=== PATIENT | female | born 1965 | race Caucasian/White ===

== ENCOUNTER 2024-02-13 08:33 | Outpatient (AMB) | payer OTHER, MEDICARE, MEDICAID, SELFPAY ==
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
[2024-02-13 08:44] VITALS: BP 128/80; PULSE 76; TEMP 37.8; O2SAT 98; BMI 24.6
== END 2024-02-13 09:12 | disposition home or self-care (01) ==
PROVIDERS: Visit Provider Physician Assistant
DX: S63.501A Unspecified sprain of right wrist, initial encounter (principal); Z04.3 Encounter for examination and observation following other accident
CPT/HCPCS: 99203

== ENCOUNTER 2024-08-26 11:24 | Outpatient (REF) | payer MEDICARE, MEDICAID, SELFPAY ==
[2024-08-26 15:18] LABS: Influenza A PCR NEGATIVE (Negative); Influenza B PCR NEGATIVE (Negative); Resp Syncy Virus RNA Qual PCR NEGATIVE (Negative); SARS COV2 PCR INHOUSE NEGATIVE (Negative)
--- OUTSIDE RECORDS SUMMARY | 2024-08-26 17:46 | XMS_ITS | Clinical Summary ---
Author Organization [address] Address [address] [place] [address] Phone Care Team Providers Care Tanker Serviceman Name Role Phone Deborah Carlisle MD Primary Care Provider [phone] Allergies Active Allergy Reactions Criticality Noted Date Comments Mirxjcg-Ihwpegumo-Ckj taminophn Hives 07/08/2005 Other Reaction(s): Rash/Dermatitis Naproxen [...] 2:15 PM EST Office Visit Adult Medicine [address] [phone] Natty De La Cruz PA Primary hypertension [...] HISTORY 01/2020 PROCEDURE: MAMMOGRAM ESOPHAGOGASTRODUODENOSCOPY 08/06/2008 PROCEDURE: [place] ESOPHAGOGASTRODUODENOSCOPY TRANSORAL DIAGNOSTIC; COMMENT: Normal COLONOSCOPY 06/29/13 PROCEDURE: HISTORICAL COLONOSCOPY; COMMENT: tics; repeat in ten yrs WISDOM TOOTH EXTRACTION PROCEDURE: HISTORICAL WISDOM TEETH EXTRACTION BREAST BIOPSY PROCEDURE: BX BREAST; PERC NEEDLE CORE W/IMAG GUID BREAST SURGERY Left PROCEDURE: [place] UNLISTED PROCEDURE BREAST; COMMENT: lt brst bx [...] Info) Description 11/27/2024 2:30 PM EDT Appointment [facility] Endoscopy [address] [place] [phone] Yesica Tena MD [address] [address] 03/31/2025 10:30 AM EDT Appointment Radiology Department - [address] [address] Health Maintenance Due Date Last Done Comments [...] category Breast cancer risk not assessed Location: [facility], [address] [place] [address], [place], [address], [phone] Procedure Note Marie Parkinson MD - 04/09/2024 [...] category Breast cancer risk not assessed Location: [facility], [address] [place], [address], [phone] Result [facility] Deborah Carlisle MD IMG XR PROCEDURES Final Result * Annual BMP Blood Test (02/01/2024) Pathologist [facility] Annual BMP Blood Test Abstracted Result [facility] Historical Provider HEALTH MAINTENANCE Final Result * (ABNORMAL) Lipid panel (02/01/2024) [facility] LDL/HDL Ratio 5(A) 0 - 4 Triglycerides 200(A) 0 - 150 mg/dL Cholesterol 235(A) 0 - 200 mg/dL HDL 47 >=40 mg/dL LDL Cholesterol 148(A) 0 - 100 mg/dL Blood Venous blood specimen / Unknown Result [facility] Historical Provider LAB BLOOD ORDERABLES Heidi l Result * Colonoscopy (06/29/2014) Pathologist [facility] Colonoscopy No Interpretation , Abstracted Anatomical Region Laterality Modality Other Historical Provider HEALTH MAINTENANCE Final Result * Hepatitis C Screening (12/23/2012) [facility] Hepatitis C Screening Abstracted Historical Provider HEALTH MAINTENANCE Final Result from Last 3 Months or Most Recently Relevant to Health Maintenance Insurance MEDICARE MEDICAID - [place] Care Teams Tanker Serviceman Relationship Specialty Start Date End Date Deborah Carlisle MD [address] [place] [address] PCP - General 03/31/1999
--- OUTSIDE RECORDS SUMMARY | 2024-08-26 17:46 | XMS_ITS | Patient Health Record ---
Author Organization [facility] Address [address] [facility] [address] [place] [address] Care Team Providers Care Senior Research Manager Name Role Phone Deborah Carlisle Primary Care Provider Unavailabl e Allergies Allergen (clinical drug ingredient) Drug/Non Drug Allergy documented on EMR Reaction Allergy Type Onset Date Status Midrin Hives/Rash/[place] titis Drug Allergy Active naproxen Naproxen Nausea and Vomitng Drug Allergy Active Reason For Referral No Information Medications Medication SIG (Take, Route, Frequency, Duration) Notes Start Date End Date Status Lisinopril 5 MG 1 tablet Orally Once a day Active Omeprazole 20 MG 1 capsule 30 minutes before morning meal Orally Once a day Active Calcium + D 315-200 MG-UNIT 1 tablet Orally Twice a day Active Meclizine HCl 12.5 MG 2 tablets as neede d Orally Once a day Not-Taking Plan Of Treatment No Information Insurance Providers Payer Name Payer Address Payer Phone Subscriber Number Group Number Insured Name Patient Relationship to Insured Coverage Start Date Coverage End Date Medicare of [place] [address] [place] [phone] [id number] Eliane Calle Self - patient is the insured Medical (General) History Medical History History ICD Code Chiari l Malformation Pure Hypercholesterolemia Hypertension Renal Cyst Heartburn vertigo COVID vaccinated X 2 (Moderna) and 1 holliday ster (Moderna) 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 Syncopal episode 03/2021
--- OUTSIDE RECORDS SUMMARY | 2024-08-26 17:46 | XMS_ITS | Clinical Summary ---
Author Organization [facility] Address [address] [place] [address] Care Team Providers Care Green Chain Operator Name Role Phone Deborah Carlisle MD Primary Care Provider [phone] Social History Tobacco Use Types Packs/Day Years [...] age to complete this topic Care Teams Green Chain Operator Relationship Specialty Start Date End Date Deborah Carlisle MD PCP - General Internal Medicine 08/10/20
--- OUTSIDE RECORDS SUMMARY | 2024-08-26 17:46 | XMS_ITS | Encounter Summary ---
Author Organization [facility] [place] [address] Care Team Providers Care Manager Solar Name Role Phone Deborah Carlisle MD Primary Care Provider [phone] Reason for Referral * Consultation (Routine) - Denied Specialty Diagnoses / Procedures Referred By William campos Referred To Contact Gastroenterology Diagnoses Screening for malignant neoplasm of colon Natty De La Cruz PA [address] [place] [phone] Phone: tel: fax: Gastroenterology [facility] [address] [facility] [address] [facility] [address] [place] [address] Phone: tel: fax: Referral ID Status Reason Start Date Expiration Date V isits Requested Visits Authorized [id number] Denied Specialty Services Required 08/01/2024 08/01/2025 1 0 Reason for Visit * Reason Comments Hypertension FOLLOW UP Encounter Details Date Type Department Care Team (Late st Contact Info) Description 08/01/2024 2:15 PM EST Office Visit Adult Medicine [address] [address] Natty De La Cruz PA [address] [place] [phone] Primary hypertension (Primary Dx); Pure hypercholesterolemia; Heartburn; [...] presents to the office today accompanied by physician locums urgent care for evaluation of hypertension. She endorses compliance with lisinopril and has been tolerating regimen without side effect. She has hyperlipidemia and is not currently on any cholesterol-lowering medication. She has GERD and is using omeprazole with good benefit. Due for colonoscopy and agreeable to proceeding. Mammogram up-to-date and subsequent follow-up is in place. Long overdue for routine exam with PHOTO TECH. ROS: GENERAL: No malaise, significant weight loss [...] MOUTH EVERY DAY 90 capsule 1 ALLERGIES: [id number]-[id number] and Naproxen PHYSICAL EXAM: Blood pressure 108/61, [...] screening mammogram. She will schedule appointment with PHOTO TECH for routine exam/Pap. Social needs screening negative. 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 Patient will [...] Info) Description 11/27/2024 2:30 PM EDT Appointment [facility] Endoscopy [address] [place] [id number] Yesica Tena MD [address] [facility] [address] [place] [address] 03/31/2025 10:30 AM EDT Appointment Radiology Department - [address] [address] Scheduled Orders Name Type Priority Associated Diagnoses [...] documented as of this encounter Care Teams Manager Solar Relationship Specialty Start Date End Date Deborah Carlisle MD [address] [place] [address] PCP - General 03/31/1999 documented as of this encounter
== END 2024-08-26 11:25 | disposition home or self-care (01) ==
LOC: HO.LNP 11:24
PROVIDERS: Visit Provider Physician Assistant
DX: B34.9 Viral infection, unspecified (principal); R09.89 Other specified symptoms and signs involving the circulatory and respiratory systems; R50.9 Fever, unspecified
CPT/HCPCS: 0241U; 99202

== ENCOUNTER 2024-08-26 11:24 | Outpatient (AMB) | payer MEDICARE, MEDICAID, SELFPAY ==
--- NOTE | 2024-08-26 11:40 | AM.OFFWIN_ITS ---
Intake Vital Signs 08/26/24 11:42 Height 5 ft 7 in Weight 157 lb BMI 24.6 BP 120/78 Blood Pressure Location Lt brachial Position Sitting Pulse 68 Pulse Source Pulse Oximeter Temp 98.6 F Temp Source Oral Pulse Oximetry (%) 98 Oxygen Delivery Method Room Air Intake Visit Reasons: EP weak, diarreah, vomiting & very pale Intake Note: Patient here for feeling weak after having diarrhea and vomiting a couple of days ago. Patient Tobacco Use Status: Never used Tobacco Allergies No Known Allergies Allergy (Verified 08/26/24 11:42) Do you need a note to return to daycare/school/sports/work: Yes HPI HPI Comments History of Present Illness Details History The patient is a 59-year-old female presenting with vomiting and diarrhea x 1 day which occurred 5 days ago. The symptoms began simultaneously 5d ago, with the vomiting once producing blue-colored contents and diarrhea occurring only on that day. Fatigue and muscle aches in her arms have been present since. She reports a headache and dizziness. There were no incidents of fever, chills, blood in the vomit or stool, or black stool. The patient tried an [id number]-[id number] antidiarrheal with no improvement. 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 Vaccination history includes this year's influenza vaccine. Physical Exam General: Cooperative, healthy appearing, comfortable and no acute distress, but very pale Orientation/consciousness: Patient oriented x3 Limitations: No limitations Head: Normal to inspection, but reports a little bit of a headache Ears: Hearing grossly normal bilaterally, external ears normal and TM's normal bilaterally Nose: Normal external nose present, Normal nares present and No nasal discharge present Face and sinus: Normal facial exam and Yes sinuses nontender Mouth: Normal oral and palatal mucosa present and moist mucous membranes Throat: Yes tonsils normal, Yes uvula midline. Posterior oropharynx erythema, a little bit red back Eyes: Appearance normal, both eyes and all related structures Neck: Normal visual inspection Respiratory: Clear to auscultation bilaterally. Normal respiratory effort, able to speak in complete sentences, no respiratory distress, not tachypneic, no trip od positioning and no use of accessory muscles Cardiovascular: Regular rate and rhythm. Normal S1 and S2 Skin: No rashes or lesions noted Neuro: Patient oriented x3 Extremities: Normal to inspection and Yes no clubbing, cyanosis or edema [facility] Social History Patient Tobacco Use Status: Never used Tobacco Review of Systems Const All systems reviewed & are unremarkable except as noted in HPI and below Physical Exam Vital Signs: Last Vital Signs Temp 98.6 F 08/26/24 11:42 Pulse 68 08/26/24 11:42 BP 120/78 08/26/24 11:42 Pulse Ox 98 08/26/24 11:42 Oxygen Delivery Method Room Air 08/26/24 11:42 BMI result Body Mass Index 24.6 Assessment & Plan Assessment & Plan (1) Acute viral syndrome: Code(s): B34.9 - Viral infection, unspecified Plan: The patient presented with symptoms indicating possible acute viral gastroenteritis or mild viral infection. Testing for influenza, COVID-19, and RSV was done, considering her heightened exposure risk from her workplace. Management includes symptomatic treatment of headache with Tylenol, emphasis on hydration potentially with Pedialyte, and ensuring nutritional support. She is advised to rest and was granted a work excuse to recover. The patient's current stability and unremarkable vital signs are reassuring, pending test results to confirm or rule out viral causes. Patient was informed and verbally consented to the use of an ambient scribe for clinic note documentation during this visit Coding Level of Care Code New Pt Level 3 (81413) Diagnoses Acute viral syndrome B34.9
[2024-08-26 11:42] VITALS: BP 120/78; PULSE 68; TEMP 37; O2SAT 98; BMI 24.6
--- OUTSIDE RECORDS SUMMARY | 2024-08-26 14:24 | XMS_ITS | Encounter Summary ---
Author Organization [facility] [place] [address] Care Team Providers Care Recorder Helper Seismograph Name Role Phone Deborah Carlisle MD Primary Care Provider Reason for Referral * Consultation (Routine) - Denied Specialty Diagnoses / Procedures Referred By William campos Referred To Contact Gastroenterology Diagnoses Screening for malignant neoplasm of colon Natty De La Cruz PA [address] [place] [id number] Phone: tel: fax: Gastroenterology [facility] [address] [facility] [address] [facility] [address] [place] [address] Phone: tel: fax: Referral ID Status Reason Start Date Expiration Date V isits Requested Visits Authorized [id number] Denied Specialty Services Required 08/01/2024 08/01/2025 1 0 Reason for Visit * Reason Comments Hypertension FOLLOW UP Encounter Details Date Type Department Care Team (Late st Contact Info) Description 08/01/2024 2:15 PM EST Office Visit Adult Medicine [address] [phone] Natty De La Cruz PA [address] [place] [id number] Primary hypertension (Primary Dx); Pure hypercholesterolemia; Heartburn; Mild intellectual disability; Screening for malignant neoplasm of colon; Encounter for screening involving social determinants of health (SDoH); Elevated glucose level Social History Tobacco Use Types Packs/Day Years Used Date Smoking Tobacco: Never Smokeless Tobacco: Never Tobacco Cessation:Counseling Given: Not Answered Alcohol Use Standard Drinks/Week Comments Yes 0 (1 standard drink = 0.6 oz pur e alcohol) Housing Instability Answer Date Recorde d Are you worried that in the next 2 months you may not have stable housing? No 08/01/2024 Food Access & Nutrition Answer Date Rec orded Do you have access to a vari ety of food including fruits and vegetables? Yes 08/01/2024 Financial Risk Answer Date Recorded How hard is it for you to pa y for the very basics like food, housing, medical care, and air conditioning / heating? Not very hard 08/01/2024 Food Risk Answer Date Recorded Within the past 12 months we worried whether our food would run out before we got money to buy more. Never true 08/01/2024 Within the past 12 months th e food we bought just didn't last and we didn't have money to get more. Never true 08/01/2024 Living Situation Answer Date Recorded What is your living situation? 0 08/01/2024 Comments Unknown Sex and Gender Information Value Date Recorded Sex Assigned at Not on file Legal Sex Female 11:47 AM EST Gender Identity Not on file Sexual Orientation Not on file documented as of this encounter Last Filed Vital Signs Vital Sign Reading Time Taken Comments Blood Pressure 108/61 08/01/2024 2:02 PM EST Pulse 63 08/01/2024 2:02 PM EST Temperature 37.1 ??C (98.7 ??F) 08/01/2024 2:02 PM ES T Respiratory Rate 17 08/01/2024 2:02 PM EST Oxygen Saturation - - Inhaled Oxygen Concentration - - Weight 72.1 kg (159 lb) 08/01/2024 2:02 PM EST Height 171.5 cm (5' 7.5 ) 08/01/2024 2:02 PM EST Body Mass Index 24.54 08/01/2024 2:02 PM EST documented in this encounter Progress Notes * PHIL Kimball - 08/01/2024 2:15 PM EST CHIEF COMPLAINT: Hypertension (FOLLOW UP) IDENTIFIER: Eliane Calle is a 59 y.o. old female. HPI: This very pleasant patient with history of mild intellectual disability presents to the office today accompanied by career transition specialist for evaluation of hypertension. She endorses compliance with lisinopril and has been tolerating regimen without side effect. She has hyperlipidemia and is not currently on any cholesterol-lowering medication. She has GERD and is using omeprazole with good benefit. Due for colonoscopy and agreeable to proceeding. Mammogram up-to-date and subsequent follow-up is in place. Long overdue for routine exam with FIELD ACCOUNT MANAGER. 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 Chiari I malformation (CMS/HCC) 07/27/2020 Pure hypercholesterolemia 09/13/2017 HTN (hypertension) 08/30/2017 Plantar fasciitis 04/21/2013 Renal cyst 12/12/2008 Heartburn 08/06/2008 Diffuse cystic mastopathy 07/08/2005 Mild intellectual disability 07/08/2005 SOCIAL HISTORY: Social History Tobacco Use Smoking status: Never Smokeless tobacco: Never Substance Use Topics Alcohol use: Yes FAMILY HISTORY: Family Status Relation Name Status Mother Alive Father Brother MGF PGF Brother Mother's stef 1stc cousin Neg Hx (Not Specified) MGM PGM Sister Alive Brother Alive No partnership data on file Family History Problem Relation Name Age of Onset Hypertension Mother elevated cholesterol Alzheimer's disease Father Suicide Attempts Brother COPD Maternal Grandfather heart conditions Other (Other: heart condition) Paternal Grandfather Other (Other: NASIMA) Brother Breast cancer Mother's side 1stc cousin Breast cancer Neg Hx ACTIVE MEDICATIONS: Outpatient Medications Marked as Taking for the 08/01/24 encounter (Office Visit) with PHIL Kimball Medication Sig Dispense Refill calcium carbonate-vitamin D3 600 mg-5 mcg (200 unit) per tablet 1 BID lisinopriL (PRINIVIL,ZESTRIL) 5 mg tablet TAKE ONE TABLET BY MOUTH EVERY DAY 90 tablet 1 omeprazole (PriLOSEC) [address] capsule TAKE ONE CAPSULE BY MOUTH EVERY DAY 90 capsule 1 ALLERGIES: Jvpiaro-czyxmbzub-ejpbfyervxdk and Naproxen PHYSICAL EXAM: Blood pressure 108/61, pulse 63, temperature 37.1 ??C (98.7 ??F), temperature source Temporal, resp. rate 17, height 1.715 m (67.5 ), weight 72.1 kg (159 lb). Body mass index is 24.54 kg/m??. BMI is 18.5 to 24.9 (within the normal range) and will be followed APPEARANCE: Alert and in no acute distress EYES: Conjunctiva and sclera normal HEART: RRR with normal S1 and S2, no murmurs LUNG: clear to auscultation EXTREMITIES: Extremities warm and well perfused without clubbing, cyanosis, or edema NEURO: Awake, alert and oriented to person and place SKIN: Skin color, texture, turgor normal. PSYCH: Calm. Pleasant. Cooperative. LABS: Lab Results Component Value Date CHOL 235 (A) 02/01/2024 TRIG 200 (A) 02/01/2024 HDL 47 02/01/2024 LDL 148 Component Ref Range & Units 6 mo ago Comments GLUCOSE 70 - 100 mg/dL 125 High Reference range applicable to fasting specimens only Blood Urea Nitrogen 5 - 25 mg/dL 16 CREAT 0.5 - 1.1 mg/dL 0.84 GLOMERULAR FILTRATION RATE >60 80 This eGFR result was calculated using the CKD-EPI 2020 Creatinine Equation NA 135 - 145 mEq/L 140 K 3.5 - 5.5 mmol/L 4.3 CL 96 - 110 mmol/L 106 CARBON DIOXIDE (CO2) 21 - 32 mmol/L 29 ANION GAP 3 - 11 5 CALCIUM 8.5 - 10.5 mg/dL 9.3 IMPRESSION: 1. Primary hypertension 2. Pure hypercholesterolemia 3. Heartburn 4. Mild intellectual disability 5. Screening for malignant neoplasm of colon 6. Encounter for screening involving social determinants of health (SDoH) PLAN: Hypertension: Blood pressure is well-controlled. Will update renal function and electrolyte testing. For now patient will continue with lisinopril as instructed. Hyperlipidemia: Previous lipid panel reviewed and suboptimally controlled. Would prefer LDL less than 130. Patient will return to the lab to have fasting lipid panel checked. Await results to determine further therapeutic options and or additional interventions. Heartburn: Stable. Patient will continue with omeprazole as instructed. Patient is referred to GI for colonoscopy. She will continue with annual screening mammogram. She will schedule appointment with FIELD ACCOUNT MANAGER for routine exam/Pap. Social needs screening negative. 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 Patient will return to the office in 6 mos for routine care with PCP. Will contact the office sooner with any problems or concerns. Myself and my colleagues have maintained a long-term, longitudinal relationship with this patient, overseeing care of chronic conditions including hypertension, hyperlipidemia, GERD. This care relationship has significantly influenced my decision making and treatment plans during today's encounter. Orders Placed This Encounter Procedures Comprehensive metabolic panel Lipid panel with reflex to direct LDL Ambulatory referral to Gastroenterology ADDITIONAL ORDERS: AMB REFERRAL TO GASTROENTEROLOGY PHIL Kimball on 08/01/2024 at 2:57 PM EST documented in this encounter Plan of Treatment Upcoming Encounters Date Type Department Care Team (Late st Contact Info) Description 11/27/2024 2:30 PM EDT Appointment [facility] [address] [place] [id number] Yesica Tena MD [address] [facility] [address] [place] [address] 03/31/2025 10:30 AM EDT Appointment Radiology Department - [address] [phone] Scheduled Orders Name Type Priority Associated Diagnoses Orde r Schedule Comprehensive metabolic panel Lab Routine Primary hypertension Pure hypercholesterolemia 1 Occurrences starting 08/01/2024 until 08/01/2025 Lipid panel with reflex to direct LDL Lab Routine Primary hypertension Pure hypercholesterolemia 1 Occurrences starting 08/01/2024 until 08/01/2025 Hemoglobin A1c Lab Routine Elevated glucose level 1 Occurrences starting 08/01/2024 until 08/01/2025 Scheduled Referrals Name Type Priority Associated Diagnoses Order Schedule Ambulatory referral to Gastroenterology Outpatient Referral Routine Screening for malignant neoplasm of colon 1 Occurrences starting 08/01/2024 until 08/01/2025 documented as of this encounter Visit Diagnoses Diagnosis Primary hypertension- Primary Unspecified essential hypertension Pure hypercholesterolemia Heartburn Mild intellectual disability Mild mental retardation Screening for malignant neoplasm of colon Encounter for screening involving social determinants of health (SDoH) Elevated glucose level Encounter for screening mammogram for breast cancer documented in this encounter Additional Health Concerns Assessment Noted Time PHQ-9 Depression Total Score: 0 08/01/19 25 8:48 AM EST documented as of this encounter Care Teams Recorder Helper Seismograph Relationship Specialty Start Date End Date Deborah Carlisle MD [address] [place] [address] PCP - General 03/31/1999 documented as of this encounter
--- OUTSIDE RECORDS SUMMARY | 2024-08-26 14:24 | XMS_ITS | Clinical Summary ---
Author Organization [address] Address [address] [place] [address] Phone Care Team Providers Care B2B Sales Professional Name Role Phone Deborah Carlisle MD Primary Care Provider [phone] Allergies Active Allergy Reactions Criticality Noted Date Comments Zzykzbe-Zmshosxwg-Bzt taminophn Hives 07/08/2005 Other Reaction(s): Rash/Dermatitis Naproxen Nausea And Vomiting 04/22/2007 Medications calcium carbonate-vitam in D3 600 mg-5 mcg (200 unit) per tablet 1 BID Active lisinopriL (PRINIVIL,ZESTR IL) 5 mg tablet TAKE ONE TABLET BY MOUTH EVERY DAY 90 tablet 1 06/01/2024 Active omeprazole (PriLOSEC) [address] capsule TAKE ONE CAPSULE BY MOUTH EVERY DAY 90 capsule 1 06/01/2024 Active Active Problems Problem Noted Date Diagnosed Date Urinary incontinence 08/01/2023 Distorted hearing of left ear 01/04/2023 Chiari I malformation 07/27/2020 Pure hypercholesterolemia 09/13/2017 HTN (hypertension) 08/30/2017 Plantar fasciitis 04/21/2013 Renal cyst 12/12/2008 Heartburn 08/06/2008 Overview (05/27/2024): Normal upper GI endoscopy 08/06/2008. Diffuse cystic mastopathy 07/08/2005 Mild intellectual disability 07/08/2005 Encounters Date Type Department Care Team Description 08/01/2024 2:15 PM EST Office Visit Adult Medicine [address] [phone] Natty De La Cruz PA Primary hypertension (Primary Dx); Pure hypercholesterolemia; Heartburn; Mild intellectual disability; Screening for malignant neoplasm of colon; Encounter for screening involving social determinants of health (SDoH); Elevated glucose level from Last 3 Months Immunizations Name Administration Dates Next Due Influenza trivalent, 0.5mL, preservative free (Fluarix; FluLaval; Fluzone) ages 6mo and older (Afluria) 3 years and older 03/07/2022,03/12/2020,04/22/2019,2012,07/03/2012,06/28/2011,05/27/2010,0 07/02/2009,04/24/2008 Influenza, Unspecified 03/09/2023,2020,03/04/2018,2016,03/24/2015,03/28/2014 Moderna (age 6mo & older) Bi valent, COVID-19, 0.5 mL or 0.25 mL dosage 04/11/2022 Moderna SARS-CoV-2 COVID-19, mRNA, LNP-S, preservative free 05/25/2021 Td Tetanus diptheria (Tdvax) 7yo and older 05/29/2018 Tdap Tetanus diptheria acell ular pertussis (Boostrix; Adacel) 7yo and older 2008 Zoster recombinant (Shingrix ) 19yo and older 12/10/2019,07/07/2019 Surgical History Surgery Date Site/Laterality Comments OTHER SURGICAL HISTORY 01/2020 PROCEDURE: MAMMOGRAM ESOPHAGOGASTRODUODENOSCOPY 08/06/2008 PROCEDURE: [place] ESOPHAGOGASTRODUODENOSCOPY TRANSORAL DIAGNOSTIC; COMMENT: Normal COLONOSCOPY 06/29/13 PROCEDURE: HISTORICAL COLONOSCOPY; COMMENT: tics; repeat in ten yrs WISDOM TOOTH EXTRACTION PROCEDURE: HISTORICAL WISDOM TEETH EXTRACTION BREAST BIOPSY PROCEDURE: BX BREAST; PERC NEEDLE CORE W/IMAG GUID BREAST SURGERY Left PROCEDURE: [place] UNLISTED PROCEDURE BREAST; COMMENT: lt brst bx neg Medical History Medical History Date Comments Mild intellectual disabilities 07/08/2005 D X:Mild intellectual disabilities Heartburn 08/06/2008 DX:Heartburn; CO MMENT: Normal upper GI endoscopy 08/06/2008. HTN (hypertension) 08/30/2017 DX:HTN (hyper tension) Diffuse cystic mastopathy 07/08/2005 DX:Dif fuse cystic mastopathy Chiari I malformation (CMS/HCC) 07/27/2020 DX:Chiari I malformation (HCC) Urinary incontinence 08/01/2023 DX:Urinary incontinence Family History Medical History Relation Name Comments Suicide Attempts Brother 1 Other: NASIMA Brother 2 Alzheimer's disease Father COPD Maternal Grandfather heart c onditions Hypertension Mother elevated choles terol Breast cancer Mother's side 1stc cousin Other: heart condition Paternal Grandfather Breast cancer Neg Hx Relation Name Status Comments Brother 1 Brother 2 Brother 3 Alive Father Maternal Grandfather Maternal Grandmother Mother Alive Mother's side 1stc cousin Paternal Grandfather Paternal Grandmother Sister Alive Social History Tobacco Use Types Packs/Day Years [...] on file Sexual Orientation Not on file Obstetrics History Last Filed Vital Signs Vital Sign Reading [...] Mass Index 24.54 08/01/2024 2:02 PM EST Plan of Treatment Upcoming Encounters Date Type Department Care Team (Late st Contact Info) Description 11/27/2024 2:30 PM EDT Appointment [facility] Endoscopy [address] [place] [phone] Yesica Tena MD [address] [address] 03/31/2025 10:30 AM EDT Appointment Radiology Department - [address] [address] Health Maintenance Due Date Last Done Comments Cervical Cancer Screening: Pap Smear 02/26/1985 Pneumococcal Vaccine: 50+ Years (1 of 1 - PCV) 02/26/2014 Medicare Annual Wellness Visit 06/03/2022 Colorectal Cancer Screening: Colonoscopy 06/29/2024 06/29/2014 Hypertension/CHF/CAD Annual BMP Blood Test 01/31/2025 02/01/2024, 02/01/2024 Depression Screening 08/01/2025 08/01/2024 Social Influencers of Health Screening 08/01/2025 08/01/2024 Breast Cancer Screening 03/12/2026 03/12/20 24, 03/12/2024, 03/06/2023, Additional history exists DTaP,Tdap,and Td Vaccines (3 - Td or Tdap) 05/29/2028 05/29/2018, 2008 Cholesterol Screening (Lipid Panel) 01/31/2029 02/01/2024, 02/01/2024 RSV Immunization Patients 60+ Years Old (1 - 1-dose 75+ series) 02/26/2039 Hepatitis C Screening Completed 12/23/2012 Zoster Vaccines Completed 12/10/2019, 07/07/2019 COVID-19 Vaccine Completed 03/06/2024, , 05/25/2021, Additional history exists Influenza Vaccine Completed 04/05/2024, , 03/07/2023, Additional history exists HIB Vaccines Aged Out No longer eligi ble based on patient's age to complete this topic HIV Screening Discontinued HPV Vaccines Aged Out No longer eligi ble based on patient's age to complete this topic Hepatitis A Vaccines Aged Out No long er eligible based on patient's age to complete this topic Hepatitis B Vaccines Aged Out No long er eligible based on patient's age to complete this topic IPV Vaccines Aged Out No longer eligi ble based on patient's age to complete this topic MMR Vaccines Aged Out No longer eligi ble based on patient's age to complete this topic Meningococcal ACWY Vaccine Aged Out N o longer eligible based on patient's age to complete this topic Meningococcal B Vacine Aged Out No lo nger eligible based on patient's age to complete this topic Pneumococcal Vaccine: Pediatrics (0 to 5 Years) and At-Risk Patients (6 to 64 Years) Aged Out No longer eligible based on patient's age to complete this topic RSV Immunization Patients Under 20 months Aged Out No longer eligible based on patient's age to complete this topic Varicella Vaccines Aged Out No longer eligible based on patient's age to complete this topic Procedures Procedure Name Priority Date/Time Associated Diagnosis Comments SCREENING MAMMOGRAPHY BI 2-VIEW BREAST INC CAD Routine 03/12/2024 10:31 AM EDT Encounter for screening mammogram for malignant neoplasm of breast ANNUAL BMP BLOOD TEST Routine 02/01/2024 LIPID PANEL Routine 02/01/2024 COLONOSCOPY Routine 06/29/2014 HEPATITIS C SCREENING Routine 12/23/2012 from Last 3 Months or Most Recently Relevant to Health Maintenance Results * SCREENING MAMMOGRAPHY BI 2-VIEW BREAST INC CAD (03/12/2024 10:31 AM EDT) Anatomical Region Laterality Modality Radiographic Verenice ging 03/06/2023 9:03 AM EDT Narrative 03/12/2024 12:06 PM EDT This is a summary report. The complete report is available in the patient's medical record. If you cannot access the medical record, please contact the sending organization for a detailed fax or copy. Full field digital screening tomosynthesis mammography, reviewed with CAD and compared to previous mammograms dating back to 02/09/2020 with most recent of 03/06/2023. The breast tissue is heterogeneously dense, limiting sensitivity. No suspicious mass, architectural distortion or suspicious calcifications are identified. ??There is a biopsy clip in the outer left breast. IMPRESSION: : Dense breast tissue, limiting the sensitivity of mammography. No mammographic evidence of malignancy. BIRADS 1-Negative; N. Breast density: The breasts are heterogeneously dense, which may obscure small masses. 5 year breast cancer risk assessment N/A Lifetime breast cancer risk assessment N/A Breast cancer risk category Breast cancer risk not assessed Location: [facility], [address] [place] [address], [place], [address], [phone] Procedure Note Marie Parkinson MD - 04/09/2024 This is a summary report. The complete report is available in thepatient's medical record. If you cannot access the medical record, pleasecontact the sending organization for a detailed fax or copy. Full field digital screening tomosynthesis mammography, reviewed with CADand compared to previous mammograms dating back to 02/09/2020 with mostrecent of 03/06/2023. The breast tissue is heterogeneously dense, limitingsensitivity. No suspicious mass, architectural distortion or suspiciouscalcifications are identified. There is a biopsy clip in the outer left breast. IMPRESSION: : Dense breast tissue, limiting the sensitivity of mammography. Nomammographic evidence of malignancy. BIRADS 1-Negative; N. Breast density: The breasts are heterogeneously dense, which may obscuresmall masses. 5 year breast cancer risk assessment N/A Lifetime breast cancer risk assessment N/A Breast cancer risk category Breast cancer risk not assessed Location: [facility], [address] [place], [address], [phone] Result [facility] Deborah Carlisle MD IMG XR PROCEDURES Final Result * Annual BMP Blood Test (02/01/2024) Pathologist [facility] Annual BMP Blood Test Abstracted Result [facility] Historical Provider HEALTH MAINTENANCE Final Result * (ABNORMAL) Lipid panel (02/01/2024) [facility] LDL/HDL Ratio 5(A) 0 - 4 Triglycerides 200(A) 0 - 150 mg/dL Cholesterol 235(A) 0 - 200 mg/dL HDL 47 >=40 mg/dL LDL Cholesterol 148(A) 0 - 100 mg/dL Blood Venous blood specimen / Unknown Result [facility] Historical Provider LAB BLOOD ORDERABLES Heidi l Result * Colonoscopy (06/29/2014) Pathologist [facility] Colonoscopy No Interpretation , Abstracted Anatomical Region Laterality Modality Other Historical Provider HEALTH MAINTENANCE Final Result * Hepatitis C Screening (12/23/2012) [facility] Hepatitis C Screening Abstracted Historical Provider HEALTH MAINTENANCE Final Result from Last 3 Months or Most Recently Relevant to Health Maintenance Insurance MEDICARE MEDICAID - [place] Care Teams B2B Sales Professional Relationship Specialty Start Date End Date Deborah Carlisle MD [address] [place] [address] PCP - General 03/31/1999
--- OUTSIDE RECORDS SUMMARY | 2024-08-26 14:24 | XMS_ITS | Data Portability ---
Author Organization [place] - [facility], Allergy Address [address] [address] Care Team Providers Care Bank Credit Card Collection Clerk Name Role Phone ARNOLD FERRIS Primary Care Provider Assessment Encounter Date Assessment Date Assessment LastModified by Organization Details LastModified Time 03/31/2024 03/31/2024 Otologic exam unremarkable. Audiometric testing demonstrates stability of her bilateral neurosensory hearing loss. She does have loss in some of the speech frequencies but she does not feel that she is struggling in conversation and is not currently in interested in amplification. Recommend noise avoidance and annual audiometric testing. Patient understands to call sooner with any otologic exam issues that arise. [email or web address] Not available 03/31/2024 10:48:08 Plan of Treatment Reminders Order Date Submit Date Provider Last Modified By Organization Details Last Modified Time Details Appointments None record ed. Lab None record ed. Referral None record ed. Procedures None record ed. Surgeries None record ed. Imaging None record ed. Medication Orders None record ed. Patient TargetsNo targets recorded. Patient InstructionsNo instructions recorded. Reason for Referral None Reported. Results Created Date Observation Date Name Description Value Unit Range Abnormal Flag Note LastModifiedBy Organization Detail LastModifiedTime 03/31/20 24 audio gram No observ ation record ed. BARCODE Not Available 2023 10:42:41 03/31/20 24 audio gram No observ ation record ed. BARCODE Not Available 2023 11:11:15 03/31/20 24 audio gram No observ ation record ed. BARCODE Not Available 2023 11:14:19 03/31/20 24 audio gram No observ ation record ed. [email or web address] Not Available 12/2023 11:18:15 Result Notes None recorded. Problems Name Problem SNOMED Code Status Onset Date Resolution Date Notes Provider Name and Address Organization Details Recorded Time Bilateral tinnitus 03199789592 02 Active 2022 Tinnitus, bilateral ; Note: Date Diagnosed : 03/29/2023 10:47 AM (H93.13) Not Available [facility] 02:39:42 Foreign body in left ear 14519004837 265255 Active 2022 Foreign body in left ear, initial encounter ; Note: Date Diagnosed : 03/29/2023 3:29 PM (T16.2XXA ) Not Available [facility] 02:39:38 Sensorine ural hearing loss of bilateral ears 814554644 Active 2022 Sensorine ural hearing loss, bilateral ; Note: Date Diagnosed : 03/29/2023 10:47 AM (H90.3) Not Available [facility] 02:39:36 Tinnitus of left ear 72878144512 06 Active 2023 NASH MENDEZ PA-C [address] [address], [place], [address] , [facility] 10:47:29 Problem Notes None recorded. Procedures Surgical History Date Name Laterality Status Provider Name and Address Organization Details Recorded Time 03/31/2024 Air & Speech Audio with Tymps (09905, 98642 & 33519) completed GAB GUSMAN [address] [place] [address], [place], [address], [facility] 03/31/2024 10:20:29 Imaging Results Imaging Date Name Status LastModified by Organiz ation Details LastModified Time 03/31/2024 audiogram completed BARCODE Information no t available 03/31/2024 10:42:41 03/31/2024 audiogram completed BARCODE Information no t available 03/31/2024 11:11:15 03/31/2024 audiogram completed BARCODE Information no t available 03/31/2024 11:14:19 03/31/2024 audiogram completed [email or web address] Information n ot available 03/31/2024 11:18:15 Procedure Notes None recorded. Medical Equipment None Reported. Allergies Allergen ID Allergen Name Allergen Category Reaction Reaction Severity Criticality Documentation Date Start Date Code Code System Note Provider Name and Address Organization Details Recorded Time 759277 Midrin medicatio n other Not available Not available 11/06/2023 63464 RxNorm React ion: Unkno wn; Not Available [facility] 01:18[facility]22 Medications Name Sig Start Date Stop Date Status Note LastModified by Organization Details LastModified Time fluorometh olone 0.1 % eye drops,susp ension INSTILL 1 DROP IN EACH EYE TWO TIMES A DAY FOR 1 WEEK, THEN ONCE DAILY FOR 1 WEEK, THEN STOP. SHAKE. active Not Available Not Available No t Available omeprazole 20 mg capsule,de layed release TAKE ONE CAPSULE BY MOUTH EVERY DAY active Not Available Not Available No t Available lisinopril 5 mg tablet TAKE ONE TABLET BY MOUTH EVERY DAY active Not Available Not Available No t Available Calcium-50 0 500 mg (as calcium carbonate 1,250 mg) chewable tablet active Medication ID: [id number] Bra nd Name: Calcium 500 Send Method: E-Prescrib ed Subs Allowed: subs [place] Medicat ionGeneric Name: Calcium 500 Not Available Not Available Not Available olopatadin e 0.2 % eye drops INSTILL ONE DROP IN EACH EYE ONCE DAILY IN THE MORNING active Not Available Not Available No t Available Vitals Date Recorded Body height Body mass index (BMI) Body weight Provider Name and Address Organization Details Last Updated DateTime 03/31/2024 170.18 cm 21.9 kg/m2 96713.93 g Emy Anguiano [place] - [facility] 03/31/2024 10:28:26 Social History None recorded. Functional Status None recorded. Mental Status None recorded. Family History Nothing Reported. Medical History No medical history recorded. Gynecological HistoryNo gynecological history recorded. Obstetrics History GPAL:G 0 P 0 0 0 0 Past Encounters Encounter ID Performer Location Encounter Start Date Encounter Closed Date Diagnosis/Indication Diagnosis SNOMED-CT Code Diagnosis ICD10 Code Diagnosis Note NASH MENDEZ PA-C [facility] [address] [place] [address] 03/31/2024 10:02:10 03/31/2024 12:35:40 Sensorineural hearing loss of bilateral ears 657267321 H90.3 Tinnitus of left ear 111 8376281 106 H93.12 GAB GUSMAN [facility] [address] [address] 03/31/2024 10:19:28 04/01/2024 07:43:37 Sensorineural hearing loss of bilateral ears 191021377 H90.3 Right Ear:Normal hearing through 1K Hz sloping to a severe SNHL with excellent speech discrimina tion.Type A tympanogra m.Left Ear:Normal hearing through 500 Hz sloping to a severe SNHL with excellent speech discrimina tion.Type A tympanogra m. Health Concerns Section Related Observation LastModified by Organization Detai ls LastModified Time None Recorded Concern Status LastModified by Organization Details LastModified Time None Recorded Advance Directives Directive None Recorded Payers Encounter Date Sequence Insurance Name Policy Number Policy Ibanez Covered Member ID Ibanez Member ID Guarantor Name 03/31/2024 1 [place] [employer] Eliane L Alva [id number] Eliane Alva 03/31/2024 2 [place] [facility] Eliane Alva [id number] Eliane Alva 03/31/2024 1 [place] [employer] Eliane L Alva [id number] Eliane Alva 03/31/2024 2 [place] [facility] Eliane Alva [id number] Eliane Alva Notes Date Note Type Note Provider Name and Address Organization Details Recorded Time 03/31/2024 text/html 59-year-old maggie monroy presents for evaluation of ears and hearing. Denies change in hearing. Nonpulsatile tinnitus in the left ear is unchanged and relatively well tolerated with masking. Patient denies otalgia and otorrhea. NASH MENDEZ PA-C [address] [place] [address], [phone], [facility] - [facility] 03/31/2024 10:48:41 OBGyn Episode No OBEpisode recorded.
--- OUTSIDE RECORDS SUMMARY | 2024-08-26 14:24 | XMS_ITS | Clinical Summary ---
Author Organization [facility] Address [address] [place] [address] Care Team Providers Care Quality Systems Manager Name Role Phone Deborah Carlisle MD Primary Care Provider [phone] Social History Tobacco Use Types Packs/Day Years Used Date Smoking Tobacco: Never Assessed Sex and Gender Information Value Date Recorded Sex Assigned at Not on file Gender Identity Not on file Sexual Orientation Not on file Plan of Treatment Health Maintenance Due Date Last Done Comments Hepatitis C Screening 1965 COVID-19 Vaccine (#1) 1964 Depression Screening 1976 Preventative Health Evaluation 02/26/1982 Cervical Cancer Screening (Pap Smear) 02/26/1985 Colon Cancer Screening (Colonoscopy) 02/26/2009 Breast Cancer Screening (Mammogram) 02/26/2014 DTap / Tdap / Td (2 - Td or Tdap) 02/26/2018 2008 Influenza Vaccine (#1) 2024 0, 04/22/2019, 04/21/2013, Additional history exists RSV Adult > 60+ Yrs or (1 - 1-dose 75+ series) 02/26/2039 Shingrix-Zoster Vaccine Completed 12/10/2019, 07/07 Hepatitis B Vaccines Aged Out No long er eligible based on patient's age to complete this topic Pneumococcal Vaccine Aged Out No long er eligible based on patient's age to complete this topic RSV Ped < 20 months Aged Out No longe r eligible based on patient's age to complete this topic Care Teams Quality Systems Manager Relationship Specialty Start Date End Date Deborah Carlisle MD PCP - General Internal Medicine 08/10/20
== END 2024-08-26 12:21 | disposition home or self-care (01) ==
PROVIDERS: Visit Provider Physician Assistant
DX: B34.9 Viral infection, unspecified (principal)

== ENCOUNTER 2025-06-09 12:46 | Outpatient (REF) | payer MEDICARE, MEDICAID, SELFPAY ==
--- NOTE | 2025-06-09 13:37 | MHC.AU.HA1 ---
Hearing Aid Evaluation Date of Visit: 06/09/25 Historical Information: Description of Hearing: Within normal sloping to moderately-severe sensorineural hearing loss, bilaterally Summary: Accompanied by technical support 1 software engineer, Gabriella. Hearing test and medical clearance from [facility]. Noted gradual change in hearing starting about two years ago. Difficulty fully understanding conversations at times. 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 Reported bilateral, intermittent tinnitus described as swishing. Hoping HAs will help ease some communication difficulties and minimize perception of tinnitus. Discuss options. Opted to trial rechargeable RITEs. Has Android cellphone but unsure if she wants to pair HAs. Gabriella has worn HAs for >15 years so will be able to help Eliane, as needed. Hearing Aid Prescription: Based on the individual?s shared listening needs, communication environments, dexterity, desire for connectivity, and personal preferences, the following prescription for amplification has been made: Right ear: Make, Model, Color: Phonak Audeo L70-R Color: Sand Beige Battery Size: Rechargeable Casino Cage Cashier/Slim Tube: 1M Type of Earmold/Dome/CShell/SlimTip: Small vented dome Left ear: Left ear prescription to be same as Right Hearing Aid above: Make, Model, Color: Phonak Audeo L70-R Color: Sand Beige Battery Size: Rechargeable Casino Cage Cashier/Slim Tube: 1M Type of Earmold/Dome/CShell/SlimTip: Small vented dome Accessories/Assistive Technology: Manager Federal Plan of Care: Patient wishes to purchase hearing aids as prescribed Action Taken/Action Needed: Hearing Instrument Fitting to be scheduled when materials arrive Primary Diagnosis: H90.3 Bilateral Sensorineural Hearing Loss Signature: Provider: Jacinta Daily, [facility]
--- OUTSIDE RECORDS SUMMARY | 2025-06-09 16:34 | XMS_ITS | Patient Health Record ---
Author Organization [facility] Address [address] [address] Care Team Providers Care Magistrate Judge Name Role Phone Deborah Carlisle Primary Care Provider HEBERT Harper Unavailable [phone] Allergies Allergen (clinical drug ingredient) Drug/Non Drug Allergy documented on EMR Reaction Allergy Type Onset Date Status Midrin Hives/Rash/[place] titis Drug Allergy Active naproxen Naproxen Nausea and Vomitng Drug Allergy Active Reason For Referral No Information Medications Medication SIG (Take, Route, Frequency, Duration) Notes Start Date End Date Status Meclizine HCl 12.5 MG 2 tablets as neede d Orally Once a day Unknown Lisinopril 5 MG 1 tablet Orally Once a day Active Omeprazole 20 MG 1 capsule 30 minutes before morning meal Orally Once a day Active Calcium + D 315-200 MG-UNIT 1 tablet Orally Twice a day Active Problems Problem Type SNOMED Code ICD Code Onset Dates Problem Status W/U Status Risk Notes Problem Plantar fasciitis (248608085) Plantar fasciitis (M72.2) Active confirmed Vital Signs Height 5ft 6.5in in 02/10/2025 Weight 159.7 lbs 02/10/2025 BMI 25.39 kg/m2 02/10/2025 Encounters Encounter Location Date Provider Diagnosis [facility] [address] 02/10/2025 HEBERT TRAN Arch pain of left fo ot M79.672 ; Arch pain of right foot M79.671 ; Plantar fasciitis M72.2 and Chiari I malformation G93.5 [facility] [address] [address] 02/10/2025 HEBERT TRAN Assessments Encounter Date Diagnosis (ICD Code) Assessment Notes Treatment Notes Treatment Clinical Notes Section Notes 02/10/2025 Arch pain of right foot (ICD-10 - M79.671) 02/10/2025 Arch pain of left foot (ICD-10 - M79.672) Patient examined and evaluated. I reviewed her past medical history in detail. 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 She has had evaluations with orthopedic specialists and other podiatrists. She has undergone immobilization, steroid injections, Amniofix injections, PT, custom orthotics, multiple MRIs and radiographs. She had an EMG/NCV test that she could not finish due to the pain. She has been in custom orthotics for the last 5 years and this has controlled the pain for her. She wishes to have a new pair made and possibly two pairs depending on insurance. I will send over a Rx to [facility] as this is where she had them made in the past. She can follow back as needed with me. Patient is ambulatory and requires stabilization of the foot and ankle due to chronic bilateral arch pain. Patient will need the device for more than 6 months. Patient has the potential to benefit functionally and there is a need to control the knee, ankle, and foot in more than one plane. A prefab device could not be fitted to the patient base on the severity of the deformity. Treatment goals are to decrease strain on the joints of the forefoot and rearfoot, to improve gait stability, and decrease pain and progression. This treatment is a viable alternative to reconstructive surgery. 02/10/2025 Plantar fasciitis (ICD-10 - M72.2) 02/10/2025 Chiari I malformation (ICD-10 - G93.5) Plan Of Treatment No Information Insurance Providers Payer Name Payer Address Payer Phone Subscriber Number Group Number Insured Name Patient Relationship to Insured Coverage Start Date Coverage End Date Medicare of [place] [address]Z [id number] [place] [phone] [id number] Eliane Calle Self - patient is the insured Medical (General) History Medical History History ICD Code Chiari l Malformation Pure Hypercholesterolemia Hypertension Renal Cyst Heartburn vertigo COVID vaccinated X 2 (Moderna) and 1 holliday ster (Moderna) Chronic bilateral arch pain in both feet Surgical History Surgery Date(Month/Year) Breast Surgery Procedure BX Breast ; Perc Needle Core W/Image [facility] [place] Teeth Extraction Hospitalization History Reason Date(Month/Year) dizziness/ dehydration DX with vertigo. Syncopal episode 03/2021
--- OUTSIDE RECORDS SUMMARY | 2025-06-09 16:34 | XMS_ITS | Clinical Summary ---
Author Organization [facility] [address] [place] [address] [place] [address] Phone Care Team Providers Care Hand Paster Name Role Phone Deborah Carlisle MD Primary Care Provider [phone] Allergies Active Allergy Reactions Criticality Noted Date Comments Kpwwild-Kwlordzjr-Dml taminophn Hives 07/08/2005 Other Reaction(s): Rash/Dermatitis Naproxen Nausea And Vomiting 04/22/2007 Medications calcium carbonate-george min D3 600 mg-5 mcg (200 unit) per tablet 1 BID Active lisinopriL (PRINIVIL,ZEST RIL) 5 mg tablet TAKE ONE TABLET BY MOUTH EVERY DAY 90 tablet 06/08/20 25 Active omeprazole (PriLOSEC) [address] capsule TAKE ONE CAPSULE BY MOUTH EVERY DAY BEFORE BREAKFAST 90 capsule 06/08/20 25 Active lisinopriL (PRINIVIL,ZEST RIL) 5 mg tablet Take 1 tablet (5 mg total) by mouth 1 (one) time each day. 90 tablet 03/17/20 25 025 Discontinued omeprazole (PriLOSEC) [address] capsule Take 1 capsule (20 mg total) by mouth 1 (one) time each day before breakfast. 90 capsule 03/17/20 25 025 Discontinued Active Problems Problem Noted Date Diagnosed Date Urinary incontinence 08/01/2023 Distorted hearing of left ear 01/04/2023 Chiari I malformation 07/27/2020 Pure hypercholesterolemia 09/13/2017 HTN (hypertension) 08/30/2017 Plantar fasciitis 04/21/2013 Renal cyst 12/12/2008 Heartburn 08/06/2008 Overview (05/27/2024): Normal upper GI endoscopy 08/06/2008. Diffuse cystic mastopathy 07/08/2005 Mild intellectual disability 07/08/2005 Encounters Date Type Department Care Team Description 03/31/2025 10:13 AM EDT - 03/31/2025 11:59 PM EDT Hospital Encounter Radiology Department - [address] [address] Encounter for screening mammogram for breast cancer Discharge Disposition: Home or Self Care from Last 3 Months Immunizations Immunization Administration Dates Next Due Influenza trivalent, 0.5mL, [...] 12/10/2019,07/07/2019 Surgical History Surgery Date Site/Laterality Comments ESOPHAGOGASTRODUODENOSCOPY 08/06/2008 : Normal COLONOSCOPY 06/29/13 : tics; repeat in ten yrs WISDOM TOOTH EXTRACTION BREAST SURGERY Left : lt brst bx neg COLONOSCOPY 11/27/2024 Medical History Medical History Date Comments Mild intellectual disabilities 07/08/2005 Heartburn 08/06/2008 : Normal upper G I endoscopy 08/06/2008. HTN (hypertension) 08/30/2017 Diffuse cystic mastopathy 07/08/2005 Chiari I malformation (CMS/H CC V24, CMS/HCC V28) 07/27/2020 Urinary incontinence 08/01/2023 Family History Medical History Relation Name Comments [...] Date Recorded What is your living situation? Unrecognized valu e 08/01/2024 Interpersonal Safety Answer Date Record ed Physical Abuse Unrecognized value 11/27/2024 Verbal Abuse Unrecognized value 11/27/2024 Comments Unknown Sex and Gender Information Value Date Recorded Sex Assigned at Not on file Legal Sex Female 11:47 AM EST Gender Identity Not on file Sexual Orientation Not on file Obstetrics History Para Term AB IAB SAB Ectopic Multiple Livin g Live Births 0 0 0 Last Filed Vital Signs Vital Sign Reading Time Taken Comments Blood Pressure 132/60 12/16/2024 9:29 AM EDT Pulse 75 12/16/2024 9:29 AM EDT Temperature 35.8 C (96.5 F) 12/16/2024 9:29 AM EDT Respiratory Rate 14 12/16/2024 9:29 AM EDT Oxygen Saturation 98% 12/16/2024 9:29 AM EDT Inhaled Oxygen Concentration - - Weight 71.5 kg (157 lb 11.2 oz) 12/16/2024 9:29 AM EDT Height 168.9 cm (5' 6.5 ) 12/16/2024 9:29 AM EDT Body Mass Index 25.07 12/16/2024 9:29 AM EDT Plan of Treatment Upcoming Encounters Date Type Department Care Team (Late st Contact Info) Description 06/30/2025 11:30 AM EST Office Visit Adult Medicine [facility] [address] [place] [address] Natty De La Cruz [facility] [address], [place] Health Maintenance Due Date Last Done Comments Cervical Cancer Screening: Pap Smear 02/26/1985 Medicare Annual Wellness Visit 06/03/2022 COVID-19 Vaccine ( season) 2025 03/06/2024, 04/11/2022, 05/25/2021, Additional history exists Social Influencers of Health Screening 08/01/2025 08/01/2024 Hypertension/CHF/CAD Annual BMP Blood Test 12/16/2025 12/16/2024, 02/01/2024, 02/01/2024 Breast Cancer Screening 03/31/2027 03/31/20 25, 03/12/2024, 03/12/2024, Additional history exists DTaP,Tdap,and Td Vaccines (3 - Td or Tdap) 05/29/2028 05/29/2018, 2008 Cholesterol Screening (Lipid Panel) 12/16/2029 12/16/2024, 02/01/2024, 02/01/2024 Colorectal Cancer Screening: Colonoscopy 11/27/2034 11/27/2024, 06/29/2014 RSV Immunization Adult Patients (1 - 1-dose 75+ series) 02/26/2039 Hepatitis C Screening Completed 12/23/2012 Zoster Vaccines Completed 12/10/2019, 07/07/2019 Depression Screening Completed 08/01/2024 Influenza Vaccine Completed 03/11/2025, , 03/07/2022, Additional history exists Pneumococcal Vaccine: 50+ Years Completed 03/11/2025 HIB Vaccines Aged Out No longer eligi [...] age to complete this topic Meningococcal B Vaccine Aged Out No l onger eligible based on patient's age to complete this topic RSV Immunization Patients Under 20 months Aged Out No longer eligible based on patient's age to complete this topic Varicella Vaccines Aged Out No longer eligible based on patient's age to complete this topic Procedures Procedure Name Priority Date/Time Associated Diagnosis Comments MG MAMMO DIGITAL SCREENING W EDMUND BILAT Routine 03/31/2025 10:23 AM EDT Encounter for screening mammogram for breast cancer COMPREHENSIVE METABOLIC PANEL Routine 12/16/2024 9:52 AM EDT Primary hypertension Pure hypercholesterolemia LIPID PANEL WITH REFLEX TO DIRECT LDL Routine 12/16/2024 9:52 AM EDT Primary hypertension Pure hypercholesterolemia COLONOSCOPY Routine 11/27/2024 4:03 PM EDT Colon cancer screening HM HEPATITIS C SCREENING Routine 12/23/2012 from Last 3 Months or Most Recently Relevant to Health Maintenance Results * MG Mammo Digital Screening w Edmund bilat (03/31/2025 10:23 AM EDT) Anatomical Region Laterality Modality Breast Bilateral Mammography 04/01/2025 4:42 PM EDT Impressions 04/01/2025 4:49 PM EDT 1. No mammographic evidence of malignancy 2. Heterogeneous breast parenchyma BI-RADS CATEGORY: 2 - BENIGN RECOMMENDATION: Screening bilateral mammogram is recommended in 1 year. Mammo Location: [facility], [address] [place] [address], [id number], . -------- FINAL REPORT -------- Dictated By: Katerin Sultana Dictated Date: 04/01/2025 16:42 ET Assigned Physician: Katerin Sultana Reviewed and Electronically Signed By: Katerin Sultana Signed Date: 04/01/2025 16:49 ET Workstation ID: [id number] Transcribed By: Self Edit Transcribed Date: 04/01/2025 16:42 ET Narrative 04/01/2025 4:49 PM EDT A BILATERAL DIGITAL 3D SCREENING MAMMOGRAPHY HISTORY: Routine screening. Family history of breast cancer COMPARISON: Multiple priors dating back to 02/19/2021 Technique: Bilateral full field digital mammography (3D) was performed using standard CC and MLO projections CAD was used to evaluate this mammogram. FINDINGS: Right: No suspicious masses, groups of microcalcification or areas of architectural distortion identified. Stable typically benign parenchymal asymmetries. Left: No suspicious masses, groups of microcalcification or areas of architectural distortion identified. Stable typically benign parenchymal asymmetries. Lateral breast biopsy marker. BREAST DENSITY: C - The breasts are heterogeneously dense which may obscure small masses. Procedure Note Katerin Sultana MD - 04/01/2025 A BILATERAL DIGITAL 3D SCREENING MAMMOGRAPHY HISTORY: Routine screening. Family history of breast cancer COMPARISON: Multiple priors dating back to 02/19/2021 Technique: Bilateral full field digital mammography (3D) was performedusing standard CC and MLO projections CAD was used to evaluate this mammogram. FINDINGS: Right: No suspicious masses, groups of microcalcification or areas ofarchitectural distortion identified. Stable typically benign parenchymalasymmetries. Left: No suspicious masses, groups of microcalcification or areas ofarchitectural distortion identified. Stable typically benign parenchymalasymmetries. Lateral breast biopsy marker. BREAST DENSITY: C - The breasts are heterogeneously dense which mayobscure small masses. IMPRESSION: 1. No mammographic evidence of malignancy 2. Heterogeneous breast parenchyma BI-RADS CATEGORY: 2 - BENIGN RECOMMENDATION: Screening bilateral mammogram is recommended in 1 year. Mammo Location: [facility], [address] [place] [address], [id number], . -------- FINAL REPORT -------- Dictated By: Katerin Sultana Dictated Date: 04/01/2025 16:42 ET Assigned Physician: Katerin Sultana Reviewed and Electronically Signed By: Katerin Sultana Signed Date: 04/01/2025 16:49 ET Workstation ID: [id number] Transcribed By: Self Edit Transcribed Date: 04/01/2025 16:42 ET Deborah Carlisle MD IM BI PROCEDURES Final Result * (ABNORMAL) Lipid panel with reflex to direct LDL (12/16/2024 9:52 AM EDT) Cholesterol 256(H) 0 - 200 mg/dL LAB CHEMISTRY METHOD 12/16/2024 2:15 PM EDT [facility] Triglycerides 297(H) 0 - 150 mg/dL LAB CHEMISTRY METHOD 12/16/2024 2:15 PM EDT [facility] HDL 46 >=40 mg/dL LAB CHEMISTRY METHOD 12/16/2024 2:15 PM EDT [facility] LDL Calculated 151(H) 0 - 100 mg/dL LAB CHEMISTRY METHOD 12/16/2024 2:15 PM EDT [facility] VLDL Cholesterol Roddy 59.4 mg/dL LAB CHEMISTRY METHOD 12/16/2024 2:15 PM T [facility] Non HDL Chol. (LDL+VLDL) 210(H) <145 mg/dL LAB CHEMISTRY METHOD 12/16/2024 2:15 PM EDT [facility] Chol/HDL Ratio 5.6(H) 0.0 - 4.4 LAB CHEMISTRY METHOD 12/16/2024 2:15 PM [facility] Blood Venous blood specimen / Unknown Venipuncture / Unknown 12/16/2024 9:52 AM EDT 12/16/2024 9:52 AM EDT Natty VILLARREAL LAB BLOOD ORDERABLES Final Resul t [facility] [address] [place] [address], [place] [phone] * Comprehensive metabolic panel (12/16/2024 9:52 AM EDT) Sodium 137 133 - 145 mmol/L LAB CHEMISTRY METHOD 12/16/2024 2:15 PM [facility] Potassium 4.5 3.5 - 5.5 mmol/L LAB CHEMISTRY METHOD 12/16/2024 2:15 PM [facility] Chloride 103 96 - 110 mmol/L LAB CHEMISTRY METHOD 12/16/2024 2:15 PM [facility] CO2 27 21 - 32 mmol/L LAB CHEMISTRY METHOD 12/16/2024 2:15 PM [facility] Anion Gap 7 3 - 11 LAB CHEMISTRY METHOD 12/16/2024 2:15 PM [facility] Glucose 98 70 - 100 mg/dL LAB CHEMISTRY METHOD 12/16/2024 2:15 PM [facility] BUN 14 5 - 25 mg/dL LAB CHEMISTRY METHOD 12/16/2024 2:15 PM [facility] Creatinine 0.72 0.50 - 1.10 mg/dL LAB CHEMISTRY METHOD 12/16/2024 2:15 PM [facility] eGFR 96 >=60 mL/min/1. 73m2 LAB CHEMISTRY METHOD 12/16/2024 2:15 PM [facility] Comment:Calculation based on the Chronic Kidney Disease Epidemiology Collaboration (CKD-EPI) equation refit without adjustment for race. BUN/Creatinine Ratio 19.4 LAB CHEMISTRY METHOD 12/16/2024 2:15 PM EDT [facility] Calcium 9.5 8.5 - 10.5 mg/dL LAB CHEMISTRY METHOD 12/16/2024 2:15 PM EDT [facility] AST (SGOT) 11 10 - 42 unit/L LAB CHEMISTRY METHOD 12/16/2024 2:15 PM EDT [facility] ALT (SGPT) 21 10 - 60 unit/L LAB CHEMISTRY METHOD 12/16/2024 2:15 PM EDT [facility] Alkaline Phosphatase 76 42 - 121 unit/L LAB CHEMISTRY METHOD 12/16/2024 2:15 PM EDT [facility] Total Protein 7.0 6.0 - 8.0 g/dL LAB CHEMISTRY METHOD 12/16/2024 2:15 PM EDT [facility] Albumin 3.9 3.2 - 5.0 g/dL LAB CHEMISTRY METHOD 12/16/2024 2:15 PM EDT [facility] Total Bilirubin 0.3 0.0 - 1.4 mg/dL LAB CHEMISTRY METHOD 12/16/2024 2:15 PM EDT [facility] Blood Venous blood specimen / Unknown Venipuncture / Unknown 12/16/2024 9:52 AM EDT 12/16/2024 9:52 AM EDT us Natty VILLARREAL LAB BLOOD ORDERABLES Final Resul t [facility] [address] [place] [address], * COLONOSCOPY Anesthesia - MAC; [facility] ENDOSCOPY (11/27/2024 4:03 PM EDT) Anatomical Region Laterality Modality Endoscopy 11/27/2024 3:47 PM EDT Impressions 11/27/2024 4:07 PM EDT - Internal hemorrhoids. - The examination was otherwise normal. - No specimens collected. Recommendation: - Discharge patient to home. - Repeat colonoscopy in 10 years for screening purposes. Narrative 11/27/2024 4:07 PM EDT [facility] GI Patient Name: Eliane Cortes Procedure Date: 11/27/2024 3:47 PM Date of : 1965 Age: 59 Gender: Female Note Status: Finalized Attending MD: Yesica Tena MD, Procedure Date No Time: 11/27/2024 Procedure: Colonoscopy Indications: Screening for colorectal malignant neoplasm Providers: Yesica Tena MD Referring MD: Yesica Tena MD Medicines: Monitored Anesthesia Care Complications: No immediate complications. Estimated blood loss: None. Estimated Blood Loss: Estimated blood loss: none. Procedure: Pre-Anesthesia Assessment: - Prior to the procedure, a History and Physical was performed, and patient medications and allergies were reviewed. The patient is competent. The risks and benefits of the procedure and the sedation options and risks were discussed with the patient. All questions were answered and informed consent was obtained. Patient identification and proposed procedure were verified by the physician, the nurse, the drop wire operator and the boiler service technician in the pre-procedure area in the endoscopy suite. Mental Status Examination: alert and oriented. Airway Examination: normal oropharyngeal airway and neck mobility. Respiratory Examination: clear to auscultation. CV Examination: normal. Prophylactic Antibiotics: The patient does not require prophylactic antibiotics. Prior Anticoagulants: The patient has taken no anticoagulant or antiplatelet agents. ASA Grade Assessment: II - A patient with mild systemic disease. After reviewing the risks and benefits, the patient was deemed in satisfactory condition to undergo the procedure. The anesthesia plan was to use monitored anesthesia care (MAC). Immediately prior to administration of medications, the patient was re-assessed for adequacy to receive sedatives. The heart rate, respiratory rate, oxygen saturations, blood pressure, adequacy of pulmonary ventilation, and response to care were monitored throughout the procedure. The physical status of the patient was re-assessed after the procedure. After I obtained informed consent, the scope was passed under direct vision. Throughout the procedure, the patient's blood pressure, pulse, and oxygen saturations were monitored continuously. The Colonoscope was introduced through the anus and advanced to the cecum, identified by appendiceal orifice and ileocecal valve. The colonoscopy was performed without difficulty. The patient tolerated the procedure well. The quality of the bowel preparation was good. Findings: The perianal and digital rectal examinations were normal. Internal hemorrhoids were found during retroflexion. The hemorrhoids were Grade I (internal hemorrhoids that do not prolapse). The exam was otherwise without abnormality. Procedure Code(s): --- Professional --- G0121, Colorectal cancer screening; colonoscopy on individual not meeting criteria for high risk Diagnosis Code(s): --- Professional --- Z12.11, Encounter for screening for malignant neoplasm of colon CPT copyright 2020 [employer]. All rights reserved. The codes documented in this report are preliminary and upon hunting and fishing guide review may be revised to meet current compliance requirements. Yesica Tena MD 11/27/2024 4:07:02 PM This report has been signed electronically.Yesica Tena MD Number of Addenda: 0 Note Initiated On: 11/27/2024 3:47 PM Scope Withdrawal Time: 0 hours 7 minutes 7 seconds Scope In: 3:52:25 PM Scope Out: 4:02:11 PM Endoscopy Department at [facility] - [address] [place] [id number] Procedure Note Yesica Tena MD - 11/27/2024 [facility] GI Patient Name: Eliane Cortes Procedure Date: 11/27/2024 3:47 PM Date of : 1965 Age: 59 Gender: Female Note Status: Finalized Attending MD: Yesica Tena MD, Procedure Date No Time: 11/27/2024 Procedure: Colonoscopy Indications: Screening for colorectal malignant neoplasm Providers: Yesica Tena MD Referring MD: Yesica Tena MD Medicines: Monitored Anesthesia Care Complications: No immediate complications. Estimated blood loss:None. Estimated Blood Loss: Estimated blood loss: none. Procedure: Pre-Anesthesia Assessment: - Prior to the procedure, a History and Physicalwas performed, and patient medications and allergieswere reviewed. The patient is competent. The risks and benefits of the procedure and the sedation optionsand risks were discussed with the patient. Allquestions were answered and informed consent was obtained. Patient identification and proposed procedure were verified by the physician, the nurse, theanesthetist and the boiler service technician in the pre-procedure area in the endoscopy suite. Mental Status Examination: alertand oriented. Airway Examination: normal oropharyngeal airway and neck mobility. Respiratory Examination: clear to auscultation. CV Examination: normal. Prophylactic Antibiotics: The patient does notrequire prophylactic antibiotics. Prior Anticoagulants: The patient has taken no anticoagulant or antiplatelet agents. ASA Grade Assessment: II - A patient withmild systemic disease. After reviewing the risks and benefits, the patient was deemed in satisfactory condition to undergo the procedure. The anesthesia plan was to use monitored anesthesia care (MAC). Immediately prior to administration of medications, the patient was re-assessed for adequacy to receive sedatives. The heart rate, respiratory rate, oxygen saturations, blood pressure, adequacy of pulmonary ventilation, and response to care were monitored throughout the procedure. The physical status ofthe patient was re-assessed after the procedure. After I obtained informed consent, the scope was passed under direct vision. Throughout theprocedure, the patient's blood pressure, pulse, and oxygen saturations were monitored continuously. The Colonoscope was introduced through the anus and advanced to the cecum, identified by appendiceal orifice and ileocecal valve. The colonoscopy was performed without difficulty. The patient tolerated the procedure well. The quality of the bowel preparation was good. Findings: The perianal and digital rectal examinations were normal. Internal hemorrhoids were found duringretroflexion. The hemorrhoids were Grade I (internal hemorrhoids that do not prolapse). The exam was otherwise without abnormality. Procedure Code(s): --- Professional --- G0121, Colorectal cancer screening; colonoscopy on individual not meeting criteria for high risk Diagnosis Code(s): --- Professional --- Z12.11, Encounter for screening for malignantneoplasm of colon CPT copyright 2020 [employer]. All rights reserved. The codes documented in this report are preliminary and upon hunting and fishing guide reviewmay be revised to meet current compliance requirements. Yesica Tena MD 11/27/2024 4:07:02 PM This report has been signed electronically.Yesica Tena MD Number of Addenda: 0 Note Initiated On: 11/27/2024 3:47 PM Scope Withdrawal Time: 0 hours 7 minutes 7 seconds Scope In: 3:52:25 PM Scope Out: 4:02:11 PM Endoscopy Department at [facility] - [address] [place] [id number] IMPRESSION: - Internal hemorrhoids. - The examination was otherwise normal. - No specimens collected. Recommendation: - Discharge patient to home. - Repeat colonoscopy in 10 years for screening purposes. Yesica Tena MD GI~PROCEDURE ORDERABLES Fin al Result * Hepatitis C Screening (12/23/2012) Hepatitis C Screening Abstracted Historical Provider HEALTH MAINTENANCE Final Result from Last 3 Months or Most Recently Relevant to Health Maintenance Insurance [place]ICAID [place] Care Teams Hand Paster Relationship Specialty Start Date End Date Deborah Carlisle MD [address] [place] [address] [facility] - General 03/31/1999
--- OUTSIDE RECORDS SUMMARY | 2025-06-09 16:34 | XMS_ITS | Clinical Summary ---
Author Organization [facility] Prior to 11/22/[address] [place] [id number] Care Team Providers Care Medical Imaging Technician Name Role Phone Deborah Carlisle MD Primary Care Provider [phone] Social History Tobacco Use Types Packs/Day Years [...] or Tdap) 02/26/2018 2008 Influenza Vaccine (#1) 2025 0, 04/22/2019, 04/21/2013, Additional history exists RSV [...] age to complete this topic Care Teams Medical Imaging Technician Relationship Specialty Start Date End Date Deborah Carlisle MD PCP - General Internal Medicine 08/10/20
--- OUTSIDE RECORDS SUMMARY | 2025-06-09 16:34 | XMS_ITS ---
Author Name [facility] Care Team Organization Name Specialty Phone Email Start Date End Da te [facility] 02/11/2025 [facility] Deborah Carlisle Primary Care 05/02/2022 4
== END 2025-06-09 12:47 | disposition home or self-care (01) ==
LOC: HO.HAP 12:46
PROVIDERS: PCP Internal Medicine; Visit Provider Otolaryngology
DX: H90.3 Sensorineural hearing loss, bilateral (principal)
CPT/HCPCS: 92591

== ENCOUNTER 2025-06-23 15:37 | Outpatient (REF) | payer MEDICARE, MEDICAID, SELFPAY ==
[2025-06-24 10:43] LABS: Resp Syncy Virus RNA Qual PCR NEGATIVE (Negative); SARS COV2 PCR INHOUSE NEGATIVE (Negative)
== END 2025-06-23 15:38 | disposition home or self-care (01) ==
LOC: HO.LNP 15:37
PROVIDERS: Physician Assistant; PCP Internal Medicine
DX: R05.1 Acute cough (principal); R09.89 Other specified symptoms and signs involving the circulatory and respiratory systems
CPT/HCPCS: 87637; 99212

== ENCOUNTER 2025-06-23 15:37 | Outpatient (AMB) | payer MEDICARE, MEDICAID, SELFPAY ==
--- NOTE | 2025-06-23 15:43 | AM.OFFWIN_ITS ---
Intake Vital Signs 06/23/25 15:44 Height 5 ft 7 in Weight 166 lb BMI 26.0 BP 114/70 Blood Pressure Location Lt brachial Position Sitting Pulse 75 Pulse Source Pulse Oximeter Temp 98.1 F Temp Source Oral Pulse Oximetry (%) 98 Oxygen Delivery Method Room Air Intake Visit Reasons: EP Cough, chest congestion Intake Note: pt presents with chest congestion and productive coughing Patient Tobacco Use Status: Never used Tobacco Allergies acetaminophen (From Midrin) Allergy (Intermediate, Verified 06/23/25 15:47) Itching dichloralphenazone (From Midrin) Allergy (Intermediate, Verified 06/23/25 15:47) Itching isometheptene (From Midrin) Allergy (Intermediate, Verified 06/23/25 15:47) Itching Do you need a note to return to daycare/school/sports/work: Yes HPI HPI Comments History of Present Illness Details Patient is a 60yo F who presents to office with cough Ongoing since she was in [place]; onset Sunday + phlegm with cough Started with cough, slight body aches No fevers but + fatigue No congestion or ST or ear pain She has tried Delsym without relief No nausea, vomiting, or diarrhea She said sometimes SOB No CP PFSH Social History Patient Tobacco Use Status: Never used Tobacco Review of Systems Const Reports body aches, Denies chills, Reports fatigue and Denies fever(s) ENT Denies dizziness, Denies otalgia, Reports nasal discharge and Denies sore throat Card Denies chest pain and Reports dyspnea Resp Reports chest congestion, Reports cough and Reports dyspnea GI Denies abdominal pain, Denies diarrhea and Denies vomiting Musc Reports myalgias Neuro Denies dizziness Endo Reports fatigue Physical Exam Exam Exam: General: Non-toxic, NAD. Speaking full sentences. Slightly hoarse voice on exam but no stridor or respiratory distress Skin: Warm dry throughout Eye: EOMI HENT: Airway patent. Uvula midline. No pharyngeal erythema or edema. No CARGO SERVICE AGENT. Bilateral canals clear. TM non-erythematous, non-bulging. No TM perforation or hemotympanum noted. Respiratory: CTA bilaterally. No wheezes, rales or rhonchi Cardiac: RRR. MSK: Full ROM extremities. Neurology: Alert. No aphasia or facial droop. Gait without abnormality Psych: Good mood and affect Vital Signs: Last Vital Signs Temp 98.1 F 06/23/25 15:44 Pulse 75 06/23/25 15:44 BP 114/70 06/23/25 15:44 Pulse Ox 98 06/23/25 15:44 Oxygen Delivery Method Room Air 06/23/25 15:44 BMI result Body Mass Index 26.0 Assessment & Plan Assessment & Plan (1) Cough: Code(s): R05.9 - Cough, unspecified Qualifiers: Cough type: acute Qualified Code(s): R05.1 - Acute cough Plan: Patient seen and evaluated. I thought lungs were CTA and O2 is 98% on RA Discussed with pt that this seems more consistent with post viral cough but she requested chest xray She is present with her support personell. I viewed chest xray and sw no infiltrate Will discharge with tessalon Covid/Flu sent for testing Increase fluids/rest Patient and support partner gave verbal understanding and had no additional questions or concerns at time of discharge All questions answered Orders: Orders XR chest 2V Today R05.9 - Cough, unspecified SARS-CoV2/FLU/RSV Today R09.89 - Other specified symptoms and signs involving the circulatory and respiratory systems Medications: New benzonatate 100 mg PO BID-TID PRN 14 caps 0RF cough Coding Level of Care Code Est Pt Level 3 (22774) Diagnoses Acute cough R05.1 Cough type: acute
[2025-06-23 15:44] VITALS: BP 114/70; PULSE 75; TEMP 36.7; O2SAT 98; BMI 26.0
--- OUTSIDE RECORDS SUMMARY | 2025-06-23 18:52 | XMS_ITS | Clinical Summary ---
Author Organization [facility] [address] [place] [address] [place] [address] Phone Care Team Providers Care Motorcycle Service Technician Name Role Phone Deborah Carlisle MD Primary Care Provider [phone] Allergies Active Allergy Reactions Criticality Noted Date Comments Zllpuss-Jhvglzuib-Oty taminophn Hives 07/08/2005 Other Reaction(s): Rash/Dermatitis Naproxen [...] PM EDT Hospital Encounter Radiology Department - [address] [address] Encounter for screening mammogram for breast cancer [...] 11:30 AM EST Office Visit Adult [facility] [address] [place] [address] Natty De La Cruz PA [address] [place], [place] Health Maintenance Due Date Last Done [...] is recommended in 1 year. Mammo Location: [place] [facility], [address] [place] [address], [address], . -------- FINAL REPORT -------- Dictated By: Katerin Sultana Dictated Date: 04/01/2025 16:42 ET Assigned Physician: Katerin Sultana Reviewed and Electronically Signed By: Katerin Sultana Signed Date: 04/01/2025 16:49 ET Workstation ID: [id number] Transcribed By: Self Edit Transcribed Date: 04/01/2025 [...] is recommended in 1 year. Mammo Location: [facility], [address] [place] [address], [address], . -------- FINAL REPORT -------- Dictated By: Katerin Sultana Dictated Date: 04/01/2025 16:42 ET Assigned Physician: Katerin Sultana Reviewed and Electronically Signed By: Katerin Sultana Signed Date: 04/01/2025 16:49 ET Workstation ID: [id number] Transcribed By: Self Edit Transcribed Date: 04/01/2025 16:42 ET Deborah Carlisle MD IM BI PROCEDURES Final Result * (ABNORMAL) Lipid panel with reflex to direct LDL (12/16/2024 9:52 AM EDT) Cholesterol 256(H) 0 - 200 mg/dL LAB CHEMISTRY METHOD 12/16/2024 2:15 PM EDT [facility] Triglycerides 297(H) 0 - 150 mg/dL LAB CHEMISTRY METHOD 12/16/2024 2:15 PM EDT [facility] HDL 46 >=40 mg/dL LAB CHEMISTRY METHOD 12/16/2024 2:15 PM EDT [facility] LDL Calculated 151(H) 0 - 100 mg/dL LAB CHEMISTRY METHOD 12/16/2024 2:15 PM EDT [facility] VLDL Cholesterol Roddy 59.4 mg/dL LAB CHEMISTRY METHOD 12/16/2024 2:15 PM T [facility] Non HDL Chol. (LDL+VLDL) 210(H) <145 mg/dL LAB CHEMISTRY METHOD 12/16/2024 2:15 PM EDT [facility] Chol/HDL Ratio 5.6(H) 0.0 - 4.4 LAB CHEMISTRY METHOD 12/16/2024 2:15 PM [facility] Blood Venous blood specimen / Unknown Venipuncture / Unknown 12/16/2024 9:52 AM EDT 12/16/2024 9:52 AM EDT Natty VILLARREAL LAB BLOOD ORDERABLES Final Resul t [facility] [address] [place] [address], [place] [phone] * Comprehensive metabolic panel (12/16/2024 9:52 AM EDT) Sodium 137 133 - 145 mmol/L LAB CHEMISTRY METHOD 12/16/2024 2:15 PM [facility] Potassium 4.5 3.5 - 5.5 mmol/L LAB CHEMISTRY METHOD 12/16/2024 2:15 PM [facility] Chloride 103 96 - 110 mmol/L LAB CHEMISTRY METHOD 12/16/2024 2:15 PM [facility] CO2 27 21 - 32 mmol/L LAB CHEMISTRY METHOD 12/16/2024 2:15 PM [facility] Anion Gap 7 3 - 11 LAB CHEMISTRY METHOD 12/16/2024 2:15 PM [facility] Glucose 98 70 - 100 mg/dL LAB CHEMISTRY METHOD 12/16/2024 2:15 PM [facility] BUN 14 5 - 25 mg/dL LAB CHEMISTRY METHOD 12/16/2024 2:15 PM [facility] Creatinine 0.72 0.50 - 1.10 mg/dL LAB CHEMISTRY METHOD 12/16/2024 2:15 PM [facility] eGFR 96 >=60 mL/min/1. 73m2 LAB CHEMISTRY METHOD 12/16/2024 2:15 PM [facility] Comment:Calculation based on the Chronic Kidney Disease Epidemiology Collaboration (CKD-EPI) equation refit without adjustment for race. BUN/Creatinine Ratio 19.4 LAB CHEMISTRY METHOD 12/16/2024 2:15 PM EDT [facility] Calcium 9.5 8.5 - 10.5 mg/dL LAB CHEMISTRY METHOD 12/16/2024 2:15 PM EDT [facility] AST (SGOT) 11 10 - 42 unit/L LAB CHEMISTRY METHOD 12/16/2024 2:15 PM EDT [facility] ALT (SGPT) 21 10 - 60 unit/L LAB CHEMISTRY METHOD 12/16/2024 2:15 PM EDT [facility] Alkaline Phosphatase 76 42 - 121 unit/L LAB CHEMISTRY METHOD 12/16/2024 2:15 PM EDT [facility] Total Protein 7.0 6.0 - 8.0 g/dL LAB CHEMISTRY METHOD 12/16/2024 2:15 PM EDT [facility] Albumin 3.9 3.2 - 5.0 g/dL LAB CHEMISTRY METHOD 12/16/2024 2:15 PM EDT [facility] Total Bilirubin 0.3 0.0 - 1.4 mg/dL LAB CHEMISTRY METHOD 12/16/2024 2:15 PM EDT [facility] Blood Venous blood specimen / Unknown Venipuncture / Unknown 12/16/2024 9:52 AM EDT 12/16/2024 9:52 AM EDT us Natty VILLARREAL LAB BLOOD ORDERABLES Final Resul t [facility] [address] [place] [address], * COLONOSCOPY Anesthesia - MAC; [facility] ENDOSCOPY (11/27/2024 4:03 PM EDT) Anatomical Region Laterality Modality Endoscopy 11/27/2024 3:47 PM EDT Impressions 11/27/2024 4:07 PM EDT - Internal hemorrhoids. - The examination was otherwise normal. - No specimens collected. Recommendation: - Discharge patient to home. - Repeat colonoscopy in 10 years for screening purposes. Narrative 11/27/2024 4:07 PM EDT [facility] GI Patient Name: Eliane Cortes Procedure Date: [...] verified by the physician, the nurse, the cotton seed culler and the fill technician in the pre-procedure area in the [...] malignant neoplasm of colon CPT copyright 2020 [employer]. All rights reserved. The codes documented in this report are preliminary and upon manager title review may be revised to meet current compliance requirements. Yesica Tena MD 11/27/2024 4:07:02 PM This report has been signed electronically.Yesica Tena MD Number of Addenda: 0 Note Initiated On: 11/27/2024 3:47 PM Scope Withdrawal Time: 0 hours 7 minutes 7 seconds Scope In: 3:52:25 PM Scope Out: 4:02:11 PM Endoscopy Department at [facility] - [address] [place] [phone] Procedure Note Yesica Tena MD - 11/27/2024 [facility] GI Patient Name: Eliane Cortes Procedure Date: [...] the physician, the nurse, theanesthetist and the fill technician in the pre-procedure area in the [...] for malignantneoplasm of colon CPT copyright 2020 [employer]. All rights reserved. The codes documented in this report are preliminary and upon manager title reviewmay be revised to meet current compliance requirements. Yesica Tena MD 11/27/2024 4:07:02 PM This report has been signed electronically.Yesica Tena MD Number of Addenda: 0 Note Initiated On: 11/27/2024 3:47 PM Scope Withdrawal Time: 0 hours 7 minutes 7 seconds Scope In: 3:52:25 PM Scope Out: 4:02:11 PM Endoscopy Department at [facility] - [address] [place] [phone] IMPRESSION: - Internal hemorrhoids. - The examination was otherwise normal. - No specimens collected. Recommendation: - Discharge patient to home. - Repeat colonoscopy in 10 years for screening purposes. Yesica Tnea MD GI~PROCEDURE ORDERABLES Fin al Result * Hepatitis C Screening (12/23/2012) Hepatitis C Screening Abstracted Historical Provider HEALTH MAINTENANCE Final Result from Last 3 Months or Most Recently Relevant to Health Maintenance Insurance [place]ICAID [place] Care Teams Motorcycle Service Technician Relationship Specialty Start Date End Date Deborah Carlisle MD [address] [place] [address] [facility] - General 03/31/1999
--- OUTSIDE RECORDS SUMMARY | 2025-06-23 18:52 | XMS_ITS | Patient Health Record ---
Author Organization [facility] Address [address] [address] Care Team Providers Care Home Theater Specialist Name Role Phone Deborah Carlisle Primary Care Provider HEBERT Harper Unavailable [phone] Allergies Allergen (clinical drug ingredient) Drug/Non Drug Allergy documented on EMR Reaction Allergy Type Onset Date Status Midrin Hives/Rash/Valentine titis Drug Allergy Active naproxen Naproxen Nausea [...] W/U Status Risk Notes Problem Plantar fasciitis (408123335) Plantar fasciitis (M72.2) Active confirmed Vital Signs Height 5ft 6.5in in 02/10/2025 Weight 159.7 lbs 02/10/2025 BMI 25.39 kg/m2 02/10/2025 Encounters Encounter Location Date Provider Diagnosis [facility] [address] 02/10/2025 HEBERT TRAN Arch pain of left fo ot M79.672 ; Arch pain of right foot M79.671 ; Plantar fasciitis M72.2 and Chiari I malformation G93.5 [facility] [address] [address] 02/10/2025 HEBERT TRAN Assessments Encounter Date Diagnosis [...] Date Medicare of [place] LIZZ SCHULTZ [address] [id number] Eliane Calle Self - patient is the insured Medical (General) History Medical History History ICD Code Chiari l Malformation Pure Hypercholesterolemia Hypertension Renal Cyst Heartburn vertigo COVID vaccinated X 2 (Moderna) and 1 holliday ster (Moderna) 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 Syncopal episode 03/2021
--- OUTSIDE RECORDS SUMMARY | 2025-06-23 18:52 | XMS_ITS | Data Portability ---
Author Organization [place] - [facility], Allergy Address [address] [address] Care Team Providers Care Senior Oracle Pl Sql Developer Name Role Phone ARNOLD FERRIS Primary Care Provider [phone] Assessment Encounter Date Assessment Date Assessment LastModified [...] Organization Details Last Modified Time Details Appointments FOLLOW UP 30 2025 10:30A M Hearing Test Not available Not available Not available Establish ed 30 2025 11:00A M ALLEN Byers MD Not available Not available Not available Lab None recorded. Referral None recorded. Procedures None recorded. Surgeries None recorded. Imaging None recorded. Medication Orders None recorded. Patient TargetsNo targets recorded. Patient InstructionsNo instructions [...] audio gram No observ ation record ed. [email or web address] Not Available 12/2023 11:18:15 04/07/20 25 audio gram No observ ation record ed. BARCODE Not Available 2024 13:35:43 Result Notes None recorded. Problems Name Problem SNOMED Code Status Onset Date Resolution Date Notes Provider Name and Address Organization Details Recorded Time Bilateral tinnitus 25693426194 02 Active 2022 Tinnitus, bilateral ; Note: Date Diagnosed : 03/29/2023 10:47 AM (H93.13) Not Available [facility] 02:39:42 Foreign body in left ear 57441491841 204196 Active 2022 Foreign body in left ear, initial encounter ; Note: Date Diagnosed : 03/29/2023 3:29 PM (T16.2XXA ) Not Available [facility] 02:39:38 Sensorine ural hearing loss of bilateral ears 894775244 Active 2022 Sensorine ural hearing loss, bilateral ; Note: Date Diagnosed : 03/29/2023 10:47 AM (H90.3) ALLEN VALERIO MD [address] [address], [place], [address] , [facility] 11:53:10 Tinnitus of left ear 98232279370 06 Active [address]AB [address]MAN [address] [place] [address], [place], [address] , [facility] 11:19:41 Problem Notes None recorded. Procedures Surgical History Date Name Laterality Status Provider Name and Address Organization Details Recorded Time 04/07/2025 Air & Speech Audio with Tymps - 84776, 53758 & 19642 completed GAB GUSMAN [address] [place] [address], [place], [address], [facility] 04/07/2025 11:19:46 03/31/2024 Air & Speech Audio with Tymps - 04833, 62160 & 24669 completed PORSCHE LAST, [facility] [address] [facility],[address] [address], [place], [address], [place] - [facility] 03/31/2024 10:20:29 Imaging Results None recorded. Procedure Notes None recorded. Medical Equipment None Reported. Allergies Allergen ID Allergen Name Allergen Category Reaction Reaction Severity Criticality Documentation Date Start Date Code Code System Note Provider Name and Address Organization Details Recorded Time 139140 Midrin medicatio n other Not available Not available 11/06/2023 96246 RxNorm React ion: Unkno wn; Not Available [facility] 01:18:22 Medications Name Sig Start Date Stop [...] CAPSULE BY MOUTH EVERY DAY BEFORE BREAKFAST active Not Available Not Available No t Available bisacodyl 5 mg tablet,del ayed release TAKE TWO TABLETS BY MOUTH RIGHT BEFORE BEGINNING BOWEL PREP.SEE INSTRUCTI ONS PROVIDED BY THE OFFICE. active Not Available Not Available No t Available lisinopril 5 mg tablet TAKE ONE TABLET BY MOUTH EVERY DAY active Not Available Not Available No t Available Calcium-50 0 500 mg (as calcium carbonate 1,250 mg) chewable tablet active Medicatio n ID: [id number] Br and Name: Calcium 500 Send Method: E-Prescri bed Subs Allowed: subs [place] [facility] ic[facility]: Calcium 500 Not Available Not Available Not Available olopatadin e 0.2 % eye drops INSTILL ONE DROP IN EACH EYE ONCE DAILY IN THE MORNING active Not Available Not Available No t Available GaviLyte-G 236 gram-22.74 gram-6.74 gram-5.86 gram oral solution FOLLOW DIRECTION S PROVIDED BY PHYSICIAN 'S OFFICE DIRECTED active Not Available Not Available No t Available Vitals Date Recorded Body height Body mass index (BMI) Body weight Provider Name and Address Organization Details Last Updated DateTime 03/31/2024 170.18 cm 21.9 kg/m2 09660.93 g Emy Anguiano [place] - [facility] 03/31/2024 10:28:26 Date Recorded Body height Body mass index (BMI) Body weight Systolic And Diastolic Provider Name and Address Organization Details Last Updated DateTime 04/07/2025 170.18 cm 21.9 kg/m2 91932.93 g 113/78 mm[Hg] Raphael Jasso [place] - [facility] 04/07/2025 11:36:11 Social History None recorded. Functional Status None recorded. Mental Status None recorded. Family History Nothing Reported. Medical History No medical history recorded. Gynecological HistoryNo gynecological history recorded. Obstetrics History GPAL:G 0 P 0 0 0 0 Past Encounters Encounter ID Performer Location Encounter Start Date Encounter Closed Date Diagnosis/Indication Diagnosis SNOMED-CT Code Diagnosis ICD10 Code Diagnosis IMO Codes Diagnosis Note MARTHA MENDEZ PA-C [facility] [address] [address] 03/31/2024 10:02:10 03/31/2024 12:35:40 Sensorineural hearing loss of bilateral ears 091718460 H90.3 Tinnitus of left ear 874 2911457 106 H93.12 GAB GUSMAN [facility] [address] [address] 03/31/2024 10:19:28 04/01/2024 07:43:37 Sensorineural hearing loss of bilateral ears 136842996 H90.3 Right Ear:Normal hearing through 1K Hz sloping to a severe SNHL with excellent speech discrimina tion.Type A tympanogra m.Left Ear:Normal hearing through 500 Hz sloping to a severe SNHL with excellent speech discrimina tion.Type A tympanogra m. [id number] ALLEN VALERIO MD [facility] [address] [address] 04/07/2025 10:54:39 04/07/2025 11:50:57 Sensorineural hearing loss of bilateral ears 570221940 H90.3 Patient's audiogram shows bilateral moderate sensorineu ral hearing loss with well maintained speech discrimina tion. There is enough hearing loss to affect day-to-day hearing performanc e. We discussed in detail the pros and cons of amplificat ion (hearing aids). Patient would like to learn more about this option so I have provided a copy of the audiogram, a list of [facility] hearing aid providers, and medical clearance for amplificat ion so the patient can pursue this at their convenien e. Patient is medically cleared for amplificat ion bilaterall yThe patient is benefiting from immunother apy and should continue. No local or systemic reactions. We will plan a repeat audiogram in 1 to 2 years since her hearing has been stable for the last year. [id number] GAB GUSMAN [facility] [address] [place] [address] 04/07/2025 11:19:20 04/08/2025 18:26:27 Sensorineural hearing loss of bilateral ears 530399343 H90.3 Right Ear:Normal hearing through 1K Hz sloping to a severe SNHL with excellent speech discrimina tion.Type A tympanogra m.Left Ear:Normal hearing through 500 Hz sloping to a severe SNHL with excellent speech discrimina tion.Type A tympanogra m. Tinnitus of left ear 396 7712894 106 H93.12 Health Concerns Section Related Observation LastModified by Organization Detai ls LastModified Time None Recorded Concern Status LastModified by Organization Details LastModified Time None Recorded Advance Directives Directive None Recorded Payers Insurance Date Sequence Insurance Name Policy Number Policy Ibanez Covered Member ID Ibanez Member ID Guarantor Name 04/07/2025 1 MEDICARE B-[place]: [employer] Eliane Calle [id number] Eliane Calle 04/07/2025 2 [place]ICAID-[place]: [facility] Eliane Calle [id number] Eliane Calle Notes Date Note Type Note Provider Name and Address Organization Details Recorded Time 03/31/2024 text/html ROS as noted in the HPI 59-year-old female presents for evaluation of ears and hearing. Denies change in hearing. Nonpulsatile tinnitus in the left ear is unchanged and relatively well tolerated with masking. Patient denies otalgia and otorrhea. Martha crabtree [place] - [facility] 03/31/2024 10:48:41 04/07/2025 text/html ROS as noted in the HPI She has a history of sensorineural hearing loss. She presents for her yearly audiogram. Hearing was stable today on audiogram. She is a candidate for hearing aids. She does work at [employer] and has occasional difficulty hearing. ALLEN VALERIO MD [address] [place] [address], [place], [address], [facility] - [facility] 04/07/2025 11:53:28 OBGyn Episode No OBEpisode recorded.
--- OUTSIDE RECORDS SUMMARY | 2025-06-23 18:53 | XMS_ITS | Continuity of Care Document ---
Author Organization [place] - [facility], [facility] Address [address] [place] [address] Care Team Providers Care Limerock Tower Loader Name Role Phone ARNOLD FERRIS Primary Care Provider Assessment No assessment recorded. Plan of Treatment Reminders Order Date Submit [...] Abnormal Flag Note LastModifiedBy Organization Detail LastModifiedTime 04/07/20 25 audio gram No observ ation record ed. BARCODE Not Available 2024 13:35:43 Result Notes None recorded. Problems Name Problem SNOMED Code Status Onset Date Resolution Date Notes Provider Name and Address Organization Details Recorded Time Bilateral tinnitus 55736699220 02 Active 2022 Tinnitus, bilateral ; Note: Date Diagnosed : 03/29/2023 10:47 AM (H93.13) Not Available [facility] 4 02:39:42 Foreign body in left ear 71139694482 427810 Active 2022 Foreign body in left ear, initial encounter ; Note: Date Diagnosed : 03/29/2023 3:29 PM (T16.2XXA ) Not Available [facility] 4 02:39:38 Sensorine ural hearing loss of bilateral ears 760459598 Active 2022 Sensorine ural hearing loss, bilateral ; Note: Date Diagnosed : 03/29/2023 10:47 AM (H90.3) ALLEN VALERIO MD [address] [facility],[place] [address], [place], [address] , [facility] - [facility] 11:53:10 Tinnitus of left ear 30744008468 06 Active 2023 PORSCHE LAST, [facility] [address] [facility],[address] [place] [address], [place], [address] , [facility] 11:19:41 Problem Notes None recorded. Procedures Surgical History Date Name Laterality Status Provider Name and Address Organization Details Recorded Time 04/07/2025 Air & Speech Audio with Tymps - 64268, 08844 & 76092 completed PORSCHECALVIN LAST, [address],[place] [address], [place], [address], [facility] 04/07/2025 11:19:46 03/31/2024 Air & Speech Audio with Tymps - 65956, 15104 & 75166 completed PORSCHE ROSA MARIARE, [address], [address], [facility] 03/31/2024 10:20:29 Imaging Results None recorded. Procedure Notes None recorded. Medical Equipment None Reported. Allergies Allergen ID Allergen Name Allergen Category Reaction Reaction Severity Criticality Documentation Date Start Date Code Code System Note Provider Name and Address Organization Details Recorded Time 509117 Midrin medicatio n other Not available Not available 11/06/2023 11406 RxNorm React ion: Unkno wn; Not Available [facility] 01:18:22 Medications Name Sig Start Date Stop [...] mg) chewable tablet active Medicatio n ID: [id number] Br and Name: Calcium 500 Send Method: E-Prescri bed Subs Allowed: subs OK Medica tionGener icName: Calcium 500 Not Available Not Available [...] Updated DateTime 04/07/2025 170.18 cm 21.9 kg/m2 97995.93 g 113/78 mm[Hg] Raphael Jasso [place] - [facility] 04/07/2025 11:36:11 Social History None recorded. Functional Status None recorded. Mental Status None recorded. Family History Nothing Reported. Medical History No medical history recorded. Gynecological HistoryNo gynecological history recorded. Obstetrics History GPAL:G 0 P 0 0 0 0 Past Encounters Encounter ID Performer Location Encounter Start Date Encounter Closed Date Diagnosis/Indication Diagnosis SNOMED-CT Code Diagnosis ICD10 Code Diagnosis IMO Codes Diagnosis Note [id number] ALLEN VALERIO MD [facility] of [address] [address] 04/07/2025 10:54:39 04/07/2025 11:50:57 Sensorineural hearing loss of bilateral ears 602252023 H90.3 Patient's audiogram shows bilateral moderate sensorineu ral hearing loss with well maintained speech discrimina tion. There is enough hearing loss to affect day-to-day hearing performanc e. We discussed in detail the pros and cons of amplificat ion (hearing aids). Patient would like to learn more about this option so I have provided a copy of the audiogram, a list of [facility] hearing aid providers, and medical clearance for amplificat ion so the patient can pursue this at their convenien e. Patient is medically cleared for amplificat ion bilaterall yThe patient is benefiting from immunother apy and should continue. No local or systemic reactions. We will plan a repeat audiogram in 1 to 2 years since her hearing has been stable for the last year. [id number] GAB GUSMAN [facility] [address] [place] [address] 04/07/2025 11:19:20 04/08/2025 18:26:27 Sensorineural hearing loss of bilateral ears [id number] H90.3 Right Ear:Normal hearing through 1K Hz sloping to a severe SNHL with excellent speech discrimina tion.Type A tympanogra m.Left Ear:Normal hearing through 500 Hz sloping to a severe SNHL with excellent speech discrimina tion.Type A tympanogra m. Tinnitus of left ear 508 [id number] 106 H93.12 Health Concerns Section Related Observation LastModified by Organization Detai ls LastModified Time None Recorded Concern Status LastModified by Organization Details LastModified Time None Recorded Payers Encounter Date Sequence Insurance Name Policy Number Policy Ibanez Covered Member ID Ibanez Member ID Guarantor Name 04/07/2025 1 [place] B[place] [employer] Eliane Manjula Alva [id number] Eliane Calle 04/07/2025 2 [place] [facility] Eliane Fair Alva [id number] Eliane Calle Notes Date Note Type Note Provider Name and Address Organization Details Recorded Time 04/07/2025 text/html ROS as noted in the HPI She has a history of sensorineural hearing loss. She presents for her yearly audiogram. Hearing was stable today on audiogram. She is a candidate for hearing aids. She does work at [employer] and has occasional difficulty hearing. ALLEN VALERIO MD [address], [address], [facility] - [facility] 04/07/2025 11:53:28 OBGyn Episode No OBEpisode recorded.
--- OUTSIDE RECORDS SUMMARY | 2025-06-23 18:53 | XMS_ITS | Continuity of Care Document ---
Author Organization [place] - [facility], [facility] Address [address] [place] [address] Care Team Providers Care Communications Engineer Name Role Phone ARNOLD FERRIS Primary Care Provider [phone] Assessment No assessment recorded. Plan of Treatment [...] Address Organization Details Recorded Time Bilateral tinnitus 80351303913 02 Active 2022 Tinnitus, bilateral ; Note: Date Diagnosed : 03/29/2023 10:47 AM (H93.13) Not Available [facility] 4 02:39:42 Foreign body in left ear 77500287355 067672 Active 2022 Foreign body in left ear, initial encounter ; Note: Date Diagnosed : 03/29/2023 3:29 PM (T16.2XXA ) Not Available [facility] 4 02:39:38 Sensorine ural hearing loss of bilateral ears 037060561 Active 2022 Sensorine ural hearing loss, bilateral ; Note: Date Diagnosed : 03/29/2023 10:47 AM (H90.3) ALLEN VALERIO MD 100 [facility],[place] [address], [place], [address] , [facility] - [facility] 11:53:10 Tinnitus of left ear 88875132686 06 Active 2023 PORSCHE LAST, [facility] [address] [facility],[place] [address], [place], [address] , [facility] 11:19:41 Problem Notes None recorded. Procedures Surgical History Date Name Laterality Status Provider Name and Address Organization Details Recorded Time 04/07/2025 Air & Speech Audio with Tymps - 13252, 12627 & 69789 completed PORSCHECALVIN LAST, [address],[place] [address], [place], [address], [facility] 04/07/2025 11:19:46 03/31/2024 Air & Speech Audio with Tymps - 55509, 19383 & 38602 completed PORSCHE ROSA MARIARE, [address], [address], [facility] 03/31/2024 10:20:29 Imaging Results None recorded. Procedure Notes None recorded. Medical Equipment None Reported. Allergies Allergen ID Allergen Name Allergen Category Reaction Reaction Severity Criticality Documentation Date Start Date Code Code System Note Provider Name and Address Organization Details Recorded Time 670959 Midrin medicatio n other Not available Not available 11/06/2023 86743 RxNorm React ion: Unkno wn; Not Available [...] mg) chewable tablet active Medicatio n ID: [id number] Br and Name: Calcium 500 Send Method: [...] Updated DateTime 04/07/2025 170.18 cm 21.9 kg/m2 88348.93 g 113/78 mm[Hg] Raphael Jasso [place] - [facility] 04/07/2025 11:36:11 Social History None recorded. Functional Status None recorded. Mental Status None recorded. Family History Nothing Reported. Medical History No medical history recorded. Gynecological HistoryNo gynecological history recorded. Obstetrics History GPAL:G 0 P 0 0 0 0 Past Encounters Encounter ID Performer Location Encounter Start Date Encounter Closed Date Diagnosis/Indication Diagnosis SNOMED-CT Code Diagnosis ICD10 Code Diagnosis IMO Codes Diagnosis Note [id number] ALLEN VALERIO MD [facility] of [address] [address] 04/07/2025 10:54:39 04/07/2025 11:50:57 Sensorineural hearing loss of bilateral ears 498339343 H90.3 Patient's audiogram shows bilateral moderate sensorineu ral hearing loss with well maintained speech discrimina tion. There is enough hearing loss to affect day-to-day hearing performanc e. We discussed in detail the pros and cons of amplificat ion (hearing aids). Patient would like to learn more about this option so I have provided a copy of the audiogram, a list of [facility] hearing aid providers, and medical clearance [...] has been stable for the last year. [id number] GAB GUSMAN [facility] [address] [place] [address] 04/07/2025 11:19:20 04/08/2025 18:26:27 Sensorineural hearing loss of bilateral ears 470298604 H90.3 Right Ear:Normal hearing through 1K Hz sloping to a severe SNHL with excellent speech discrimina tion.Type A tympanogra m.Left Ear:Normal hearing through 500 Hz sloping to a severe SNHL with excellent speech discrimina tion.Type A tympanogra m. Tinnitus of left ear 507 7268123 106 H93.12 Health Concerns Section Related Observation LastModified by Organization Detai ls LastModified Time None Recorded Concern Status LastModified by Organization Details LastModified Time None Recorded Payers Encounter Date Sequence Insurance Name Policy Number Policy Ibanez Covered Member ID Ibanez Member ID Guarantor Name 04/07/2025 1 [place] [employer] Eliane Manjula Alva [id number] Eliane Calle 04/07/2025 2 [place] [facility] Eliane Fair Alva [id number] Eliane Calle Notes Date Note Type Note Provider Name and Address Organization Details Recorded Time 04/07/2025 text/html ROS as noted in the HPI She has a history of sensorineural hearing loss. She presents for her yearly audiogram. Hearing was stable today on audiogram. She is a candidate for hearing aids. She does work at [employer] and has occasional difficulty hearing. ALLEN VALERIO MD [address], [address], [facility] - [facility] 04/07/2025 11:53:28 OBGyn Episode No OBEpisode recorded.
--- OUTSIDE RECORDS SUMMARY | 2025-06-23 18:53 | XMS_ITS | Clinical Summary ---
Author Organization [facility] Prior to 11/22/[address] [place] [address] Care Team Providers Care Chop Saw Operator Name Role Phone Deborah Carlisle MD Primary Care Provider [phone] Social History Tobacco Use Types Packs/Day Years [...] age to complete this topic Care Teams Chop Saw Operator Relationship Specialty Start Date End Date Deborah Carlisle MD PCP - General Internal Medicine 08/10/20
== END 2025-06-23 16:27 | disposition home or self-care (01) ==
PROVIDERS: PCP Internal Medicine; Visit Provider Physician Assistant
DX: R05.1 Acute cough (principal)

== ENCOUNTER 2025-06-23 16:02 | Outpatient (REF) | payer MEDICARE, MEDICAID, SELFPAY ==
--- NOTE | ~2025-06-23 | XR_ITS ---
EXAMINATION: XR CHEST CLINICAL INFORMATION: R05.9 - Cough, unspecified COMPARISON: None available. TECHNIQUE: 2 views of the chest were obtained. FINDINGS: No significant abnormality is noted involving the heart, lungs, mediastinum, bony thorax or soft tissues. XR/XR chest 2V IMPRESSION: Unremarkable chest examination. Electronically signed by: Kendell Emery MD 06/23/2025 04:19 PM [facility]
== END 2025-06-23 16:03 | disposition home or self-care (01) ==
LOC: HO.HMGCX 16:02
PROVIDERS: PCP Internal Medicine; Visit Provider Physician Assistant
DX: R05.1 Acute cough (principal); R09.89 Other specified symptoms and signs involving the circulatory and respiratory systems
CPT/HCPCS: 71046; 87637; 99212

== ENCOUNTER → 2025-06-23 16:05 | Outpatient (BNV) | payer MEDICARE, MEDICAID, SELFPAY | PROVIDERS: PCP Internal Medicine; Visit Provider Radiology Diagnostic Radiology | DX: R05.9 Cough, unspecified (principal) | CPT/HCPCS: 71046 ==